=== PATIENT | female | born 1990 | race American Indian/Alaskan Native ===

== ENCOUNTER 2016-06-12 10:53 | Outpatient (CLI) | payer BC ==
[2016-06-12 12:32] LABS: Bacteria,Urine 2+ /HPF (Negative); Bilirubin,Urine NEG (Negative); Blood,Urine NEG (Negative); Ketones,Urine NEG (Negative); Leukocyte Esterase,Urine NEG (Negative); Mucus,Urine FEW /HPF; Nitrite,Urine NEG (Negative); Protein,Urine <15 mg/dL mg/dL (Negative); Urobilinogen,Urine < 2.0 mg/dL (<2.0)
[2016-06-12] MEDS ORDERED: LACTATED RINGERS 1,000 ML IV ONE (12:42)
[2016-06-12] MEDS ORDERED: LACTATED RINGERS 1,000 ML ONE (12:47)
[2016-06-12] MEDS ORDERED: BRETHINE SUB-Q ONE (15:00)
[2016-06-12 16:12] VITALS: BP 139/70
== END 2016-06-12 16:30 | disposition home or self-care (01) ==
LOC: TRG 10:53 → LD 10:56 → TRG 16:30
PROVIDERS: ATTEND Obstetrics & Gynecology
DX: O47.03 False labor before 37 completed weeks of gestation, third trimester (principal); Z3A.29 29 weeks gestation of pregnancy
CPT/HCPCS: 36415; 59025; 81001; 82731; 96360; 96372; J3105; J7120

== ENCOUNTER 2016-07-11 13:19 | Inpatient (IN) | payer BC, MEDICAID ==
[2016-07-11] MEDS ORDERED: LACTATED RINGERS 500 ML IV ONE (14:00)
[2016-07-11 14:03] LABS: Bacteria,Urine 1+ /HPF (Negative); Bilirubin,Urine NEG (Negative); Blood,Urine NEG (Negative); Ketones,Urine NEG (Negative); Leukocyte Esterase,Urine TR (Negative); Mucus,Urine 3+ /HPF; Nitrite,Urine NEG (Negative); Uric Acid Crystals,Urine 1+; Urobilinogen,Urine < 2.0 mg/dL (<2.0)
[2016-07-11] MEDS ORDERED: BRETHINE SUB-Q ONE (14:26)
[2016-07-11 14:31] LABS: Urine Drugs of Abuse Note Disclamer
[2016-07-11 15:00] LABS: Basophils % (Auto) 0.2 % (0.0-1.8); Eosinophils % (Auto) 0.6 % (0.0-4.3); Hematocrit 34.7 % (30.3-42.9); Hemoglobin 11.7 gm/dl (10.1-14.3); Mean Corpuscular HGB Conc 34 % (30-34); Mean Corpuscular Hemoglobin 29 pg (28-32); Mean Corpuscular Volume 87 fl (79-97); Platelet Count 300 K/mm3 (140-440); Red Blood Count 3.99 M/mm3 (3.65-5.03); Red Cell Distribution Width 13.5 % (13.2-15.2)
[2016-07-11] MEDS: CELESTONE SOLUSPAN IM SCH (15:30)
[2016-07-11] MEDS: LACTATED RINGERS 1,000 ML IV SCH ×2 (16:05→18:55)
[2016-07-11] MEDS ORDERED: SENOKOT S PO PRN (18:16)
[2016-07-11] MEDS ORDERED: MILK OF MAGNESIA PO PRN (18:16)
[2016-07-11] MEDS ORDERED: TYLENOL PO PRN (18:16)
[2016-07-11] MEDS ORDERED: SUDAFED PO PRN (18:16)
[2016-07-11] MEDS ORDERED: TUCKS PAD TP PRN (18:16)
[2016-07-11] MEDS ORDERED: ROBITUSSIN DM PO PRN (18:16)
[2016-07-11] MEDS ORDERED: DEEP SEA NS PRN (18:16)
[2016-07-11] MEDS ORDERED: ALUM-MAG HYDROX-SIMETH 200-200-20MG/5ML PO PRN (18:16)
[2016-07-11] MEDS ORDERED: AMBIEN PO PRN (18:16)
[2016-07-11] MEDS ORDERED: BENADRYL PO PRN (18:16)
[2016-07-11] MEDS ORDERED: COLACE PO PRN (18:16)
--- NOTE | 2016-07-11 18:28 | History and Physical Report ---
History of Present Illness Date of examination: 07/11/16 Date of admission: 07/11/16 13:27 Chief complaint: contractions History of present illness: This is a 26 yo G4 P 3 at 33 weeks came into labor and delivery complaining of contractions today.She states that baby is moving well. Denies any vb no leaking and no other sx. 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 denies: smoking, alcohol abuse - Obstetrical History Expected Date of Delivery: 08/28/16 Actual Gestation: 33 Week(s) 1 Day(s) : 4 Para: 3 Hx # Term Pregnancies: 3 Number of Pregnancies: 0 Spontaneous Abortions: 0 Induced : 0 Number of Living Children: 3 Medications and Allergies Allergies Allergy/AdvReac Type Severity Reaction Status Date / Time No Known Allergies Allergy Verified 06/12/16 11:29 Home Medications Medication Instructions Recorded Confirmed Last Taken Type No Known Home Medications [No 06/12/16 07/11/16 Unknown History Reported Home Medications] Active Meds: Active Medications Betamethasone Acet/Betameth SodPhos (Celestone Soluspan) 12 mg IM Q24H GWENDOLYN Stop: 07/12/16 15:01 Lactated Ringer's (Lactated Ringers) 1,000 mls @ 125 mls/hr IV DIRECT GEWNDOLYN Last Admin: 07/11/16 16:05 Dose: 125 mls/hr Magnesium Sulfate (Magnesium Sulfate 40gm/1000ml) 40 gm in 1,000 mls @ 25 mls/ hr IV DIRECT GWENDOLYN PRN Reason: 1 GM/HR Magnesium Sulfate (Magnesium Sulfate 4gm/100ml) 4 gm in 100 mls @ 300 mls/hr IV ONCE ONE Stop: 07/11/16 18:29 Review of Systems All systems: negative Genitourinary: contractions - Vital Signs Vital signs: Vital Signs Pulse Pulse Ox 93 H 99 07/11/16 13:35 07/11/16 13:35 Temp Pulse Resp BP Pulse Ox 97.2 F L 83 18 128/76 97 07/11/16 15:41 07/11/16 18:20 07/11/16 15:41 07/11/16 18:03 07/11/16 18:20 - Physical Exam Breasts: Positive: deferred Cardiovascular: Regular rate, Normal S1, Normal S2 Lungs: Positive: Clear to auscultation, Normal air movement Abdomen: Positive: normal appearance, soft, normal bowel sounds. Negative: distention, tenderness Genitourinary (Female): Positive: normal external genitalia, normal perenium Vulva: both: normal Vagina: Positive: normal moisture Uterus: Positive: normal size, normal contour Anus/Rectum: Positive: normal perianal skin Extremities: Positive: normal Deep Tendon Reflex Grade: Normal +2 - Obstetrical FHR: category 1 Uterine Contraction Monitor Mode: External Cervical Dilatation: 0.5 Cervical Effacement Percentage: 40 station: -4 Uterine Contraction Frequency (min): q3-5 Results Result Diagrams: 07/11/16 14:30 Abnormal lab results 07/11/16 Range/Units 14:30 WBC 12.0 H (4.5-11.0) K/mm3 Seg Neutrophils % 76.3 H (40.0-70.0) % Seg Neutrophils # 9.1 H (1.8-7.7) K/mm3 All other labs normal. Ultrasound: pending, report reviewed Assessment and Plan A/P IUP 33 weeks, labor 1. admitted to labor and delivery ( cervix changed from closed to FT) 2. IVF initiated 3. s/p 1 dose of terbutaline ( unsuccessful in mgt of ctx) 4. will start mag for neuroprotective and PTL 5. BPP 10/02 6. [facility] consult for further recommnedations 7. if any or maternal conditions will proceed with repeat c/s 8. signed tubal papers on chart 9. s/p one dose of celastone await second dose tomorrow 10. close monitor of status 11. send for cultures and GBS
[2016-07-11] MEDS ORDERED: MYLICON PO PRN (18:29)
[2016-07-11] MEDS ORDERED: MAGNESIUM SULFATE 4GM/100ML 4 GM/100 ML BAG IV ONE (19:00)
[2016-07-11] MEDS: MAGNESIUM SULFATE 40GM/1000ML 40 GM/1,000 ML BAG IV SCH (19:35)
[2016-07-11] MEDS ORDERED: STADOL IV PRN (21:05)
[2016-07-11] MEDS ORDERED: SUBLIMAZE IV PRN (21:08)
[2016-07-11] MEDS: ZOFRAN IV PRN (23:00)
[2016-07-11] MEDS ORDERED: PHENERGAN PR PRN (23:04)
[2016-07-11] MEDS ORDERED: PHENERGAN PO PRN (23:04)
--- NOTE | 2016-07-12 07:26 | Admit Criteria Form ---
Admission Criteria Documentation: LABOR, THREATENED Clinical Indications for Admission to Inpatient Care (Place 'X' for any and all applicable criteria): Admission is indicated for ANY ONE of the following 1,2,3: [ ]I. Chorioamnionitis [ ]II. Significant vaginal bleeding or any vaginal bleeding with known placental previa or vasa previa 5,8 [ ]III. Serious maternal, infection or comorbidity (eg, pyelonephritis, pneumonia) as cause [ ]IV. Delivery [ ]V. distress or demise [ ]. labor and positive fibronectin(fFN) assay (9) [ ]VII. Condition requiring premature delivery (eg, premature rupture of membranes) 4,5 [X ]VIII. Inpatient admission required rather than observation care (Also use Labor, Threatened: Observation Care Criteria as appropriate) because of ANY ONE of the following: [X]a) Continued monitoring that requires inpatient care [ ]b) Tocolytic therapy needed that requires inpatient care [ ]c) Complications of tocolytic treatment (eg, pulmonary edema, hypotension) that are severe or persistent (9) Extended stay beyond goal length of stay may be needed for (1)(2) [ ]a) Significant infection (eg, chorioamnionitis)(29) [ ]b) Continued uterine contractions [ ]c) demise [ ]d) Continued vaginal bleeding or placental abnormality [ ]e) Complications of tocolytic treatment (eg, pulmonary edema, hypotension)( 15) [ ]f) Multiple gestation(33) [ ]g) Other condition (eg, severe maternal disease, premature delivery) requiring continued inpatient care The original [email or web address] content created by [employer] has been revised. The portions of the content which have been revised are identified through the use of italic text or in bold, and [facility] has neither reviewed nor approved the modified material. All other unmodified content is copyright [facility] [facility]. Please see references footnoted in the original [facility] [employer] edition 2016 Admission Criteria Met: Yes
[2016-07-12] MEDS: LACTATED RINGERS 1,000 ML IV SCH ×2 (07:31→21:17)
--- NOTE | 2016-07-12 07:31 | Ultrasound Report ---
BIOPHYSICAL PROFILE: INDICATION: STACI. COMPARISON: None similar. TECHNIQUE: Transabdominal ultrasound with Doppler interrogation. 2 - breathing movements 2 - movements 2 - posture and tone 2 - Qualitative amniotic fluid volume 8 - TOTAL SCORE OF POSSIBLE 8 Heart Rate (bpm) 153
--- NOTE | 2016-07-12 07:37 | Ultrasound Report ---
OB ULTRASOUND GREATER THAN 14 WEEKS INDICATION: STACI, labor. COMPARISON: None similar. TECHNIQUE: Transabdominal grayscale ultrasound with Doppler interrogation. Gestation: [place] Position: Cephalic Amniotic Fluid: WNL (7-24 cm) STACI = 13.7 cm Placenta: Posterior fundal Placental Grade: I Heart Rate: 153 BPM It is too early for a anatomical survey BPD: 8.3 cm = 33 w 2 d HC: 30.4 cm = 33 w 5 d AC: 30.4 cm = 34 w 3 d FL: 6.7 cm = 34 w 4 d HC/AC Ratio: 1 Cephalic Index: 74 Estimated Weight: 2391 grams Clinical age = 33 w 1 d EDC: 08/28/2016 US Gest. Age = 34 w 0 d EDC: 08/22/2016 CONCLUSION: Single, viable intrauterine gestation with ultrasound estimated age of 34 weeks and zero days and EDC of 08/22/2016, currently in cephalic lie with details, as above. Thank you for the opportunity to participate in this patient's care.
--- NOTE | 2016-07-12 08:34 | Progress Note ---
Assessment and Plan A: IUP at 33w2d s/p 1 dose of betamethasone labor on magnesium sulfate tocolysis Previous x 3 Obesity Undesired Fertility Genital Herpes P: Continue current management. Second dose of betamethasone today. MFM consult today. Closely monitor maternal and status. Subjective - Subjective Date of service: 07/12/16 Principal diagnosis: IUP at 33w2d, labor, Previoud x 3 Interval history: Pt reports intense contractions overnight that have since become less frequent. She denies leakage of fluid or vaginal bleeding. Patient reports: movement normal, contractions (irregular ), no new complaints, no loss of fluid, no vaginal bleeding Objective - Vital Signs Vital Signs: Vital Signs - 12hr 07/11/16 07/11/16 07/11/16 20:48 21:16 21:48 Temperature Pulse Rate 80 84 Respiratory 20 Rate Blood Pressure 110/55 125/57 Blood Pressure [Right Arm] O2 Sat by Pulse Oximetry 07/11/16 07/11/16 07/11/16 22:49 22:51 23:48 Temperature 97.7 F Pulse Rate 76 77 Respiratory 18 Rate Blood Pressure 110/57 104/67 Blood Pressure [Right Arm] O2 Sat by Pulse Oximetry 07/12/16 07/12/16 07/12/16 00:00 00:48 01:59 Temperature Pulse Rate 70 75 Respiratory 18 Rate Blood Pressure 117/60 106/69 Blood Pressure [Right Arm] O2 Sat by Pulse Oximetry 07/12/16 07/12/16 07/12/16 02:00 03:30 03:31 Temperature 97.7 F Pulse Rate 71 Respiratory 16 18 Rate Blood Pressure 94/51 Blood Pressure [Right Arm] O2 Sat by Pulse 97 Oximetry 07/12/16 07/12/16 07/12/16 03:36 03:41 03:46 Temperature Pulse Rate 82 67 68 Respiratory Rate Blood Pressure Blood Pressure [Right Arm] O2 Sat by Pulse 98 97 97 Oximetry 07/12/16 07/12/16 07/12/16 03:51 03:56 04:01 Temperature Pulse Rate 66 70 70 Respiratory Rate Blood Pressure Blood Pressure [Right Arm] O2 Sat by Pulse 97 97 98 Oximetry 07/12/16 07/12/16 07/12/16 04:06 04:11 04:16 Temperature Pulse Rate 75 72 71 Respiratory Rate Blood Pressure Blood Pressure [Right Arm] O2 Sat by Pulse 97 97 97 Oximetry 07/12/16 07/12/16 07/12/16 04:21 04:26 04:31 Temperature Pulse Rate 75 73 74 Respiratory Rate Blood Pressure Blood Pressure [Right Arm] O2 Sat by Pulse 97 97 97 Oximetry 07/12/16 07/12/16 07/12/16 04:36 04:41 04:46 Temperature Pulse Rate 74 72 96 H Respiratory Rate Blood Pressure Blood Pressure [Right Arm] O2 Sat by Pulse 97 97 96 Oximetry 07/12/16 07/12/16 07/12/16 04:51 04:54 04:56 Temperature Pulse Rate 69 73 78 Respiratory Rate Blood Pressure Blood Pressure [Right Arm] O2 Sat by Pulse 95 94 95 Oximetry 07/12/16 07/12/16 07/12/16 05:00 05:01 05:06 Temperature Pulse Rate 81 75 71 Respiratory Rate Blood Pressure Blood Pressure [Right Arm] O2 Sat by Pulse 94 94 94 Oximetry 07/12/16 07/12/16 07/12/16 05:07 05:11 05:12 Temperature Pulse Rate 76 72 73 Respiratory Rate Blood Pressure Blood Pressure [Right Arm] O2 Sat by Pulse 93 93 93 Oximetry 07/12/16 07/12/16 07/12/16 05:16 05:18 05:21 Temperature Pulse Rate 73 72 76 Respiratory Rate Blood Pressure Blood Pressure [Right Arm] O2 Sat by Pulse 95 94 94 Oximetry 07/12/16 07/12/16 07/12/16 05:23 05:26 05:28 Temperature Pulse Rate 69 92 H 68 Respiratory Rate Blood Pressure Blood Pressure [Right Arm] O2 Sat by Pulse 94 97 94 Oximetry 07/12/16 07/12/16 07/12/16 05:30 06:29 06:31 Temperature Pulse Rate 68 65 Respiratory 22 20 Rate Blood Pressure 119/61 128/71 Blood Pressure [Right Arm] O2 Sat by Pulse Oximetry 07/12/16 07/12/16 07/12/16 07:30 07:55 07:56 Temperature 97.5 F L Pulse Rate 74 77 Respiratory 14 Rate Blood Pressure 124/64 Blood Pressure 124/64 [Right Arm] O2 Sat by Pulse 98 98 Oximetry 07/12/16 07/12/16 07/12/16 08:01 08:06 08:11 Temperature Pulse Rate 77 71 79 Respiratory Rate Blood Pressure Blood Pressure [Right Arm] O2 Sat by Pulse 98 98 99 Oximetry 07/12/16 08:16 Temperature Pulse Rate 76 Respiratory Rate Blood Pressure Blood Pressure [Right Arm] O2 Sat by Pulse 97 Oximetry - Exam Breasts: deferred Cardiovascular: Regular rate Lungs: Clear to auscultation Abdomen: Present: soft (obese, gravid ) Uterus: Present: normal (gravid ) FHR: auscultation normal Uterine Contraction Monitor Mode: External Uterine Contraction Pattern: Irregular Uterine Tone Measurement Phase: Resting Uterine Contraction Intensity: Mild Extremities: normal (SCDs in place ) - Labs Labs: Abnormal Labs 07/11/16 07/11/16 07/12/16 14:30 23:17 05:30 WBC 12.0 H Seg Neutrophils % 76.3 H Seg Neutrophils # 9.1 H Magnesium 3.10 H 3.80 H Laboratory Results - last 24 hr 07/11/16 07/11/16 07/11/16 13:45 13:45 14:30 WBC 12.0 H RBC 3.99 Hgb 11.7 Hct 34.7 MCV 87 MCH 29 MCHC 34 RDW 13.5 Plt Count 300 Lymph % (Auto) 17.5 Greene % (Auto) 5.4 Eos % (Auto) 0.6 Baso % (Auto) 0.2 Lymph # 2.1 Greene # 0.6 Eos # 0.1 Baso # 0.0 Seg Neutrophils % 76.3 H Seg Neutrophils # 9.1 H Magnesium Urine Color Yellow Urine Turbidity Clear Urine pH 6.0 Ur Specific Larose 1.019 Urine Protein 30 mg/dl Urine Glucose (UA) Neg Urine Ketones Neg Urine Blood Neg Urine Nitrite Neg Urine Bilirubin Neg Urine Urobilinogen < 2.0 Ur Leukocyte Esterase Tr Urine WBC (Auto) 6.0 Urine RBC (Auto) 2.0 U Epithel Cells (Auto) 7.0 Urine Bacteria (Auto) 1+ Uric Acid Crystals 1+ Urine Mucus 3+ Urine Opiates Screen Presumptive negative Urine Methadone Screen Presumptive negative Ur Barbiturates Screen Presumptive negative Ur Phencyclidine Scrn Presumptive negative Ur Amphetamines Screen Presumptive negative U Benzodiazepines Scrn Presumptive negative Urine Cocaine Screen Presumptive negative U Marijuana (THC) Screen Presumptive positive Drugs of Abuse Note Disclamer Blood Type Antibody Screen DELROY Antibody Screen 07/11/16 07/11/16 07/12/16 14:30 23:17 05:30 WBC RBC Hgb Hct MCV MCH MCHC RDW Plt Count Lymph % (Auto) Greene % (Auto) Eos % (Auto) Baso % (Auto) Lymph # Greene # Eos # Baso # Seg Neutrophils % Seg Neutrophils # Magnesium 3.10 H 3.80 H Urine Color Urine Turbidity Urine pH Ur Specific Larose Urine Protein Urine Glucose (UA) Urine Ketones Urine Blood Urine Nitrite Urine Bilirubin Urine Urobilinogen Ur Leukocyte Esterase Urine WBC (Auto) Urine RBC (Auto) U Epithel Cells (Auto) Urine Bacteria (Auto) Uric Acid Crystals Urine Mucus Urine Opiates Screen Urine Methadone Screen Ur Barbiturates Screen Ur Phencyclidine Scrn Ur Amphetamines Screen U Benzodiazepines Scrn Urine Cocaine Screen U Marijuana (THC) Screen Drugs of Abuse Note Blood Type O POSITIVE Antibody Screen TNR DELROY Antibody Screen Negative
[2016-07-12] MEDS ORDERED: PRENATAL VITAMIN PO SCH (10:00)
--- NOTE | 2016-07-12 13:20 | Consultation ---
History of Present Illness Reason for consult: contractions (Patient is 25 y.o. G [id number] at 33.2 weeks with GUIDO of 08/28/16 Patient presented to [facility] on 07/11/16 with complaints of contractions . Patient followed by [facility] due to Morbid obesity with last appt 05/18/16. Patient is S/P BMZ times 1 dose and has MgSO4 2 gm/hr in progress . Patient denies VB, ABD pain , regular contractions. 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 Family/Genetic History: other (thyroid) - Obstetrical History : 4 Medications and Allergies Allergies Allergy/AdvReac Type Severity Reaction Status Date / Time No Known Allergies Allergy Verified 06/12/16 11:29 Home Medications Medication Instructions Recorded Confirmed Last Taken Type No Known Home Medications [No 06/12/16 07/11/16 Unknown History Reported Home Medications] Active Meds: Active Medications Acetaminophen (Tylenol) 650 mg PO Q4H PRN PRN Reason: Pain MILD(1-3)/Fever >100.5/CISSE Al Hydrox/Mg Hydrox/Simethicone (Alum-Mag Hydrox-Simeth [phone]/5ml) 30 ml PO Q6H PRN PRN Reason: Indigestion Betamethasone Acet/Betameth SodPhos (Celestone Soluspan) 12 mg IM Q24H GWENDOLYN Stop: 07/12/16 15:01 Last Admin: 07/11/16 15:30 Dose: 12 mg Butorphanol Tartrate (Stadol) 2 mg IV Q2H PRN PRN Reason: Labor Pain Last Admin: 07/11/16 21:13 Dose: 2 mg Diphenhydramine HCl (Benadryl) 25 mg PO Q6H PRN PRN Reason: Itching Docusate Sodium (Colace) 100 mg PO Q12H PRN PRN Reason: Constipation Fentanyl (Sublimaze) 100 mcg IV Q2H PRN PRN Reason: Labor Pain Guaifenesin (Robitussin Dm) 10 ml PO Q6H PRN PRN Reason: Cough Lactated Ringer's (Lactated Ringers) 1,000 mls @ 125 mls/hr IV DIRECT GWENDOLYN Last Admin: 07/12/16 07:31 Dose: 125 mls/hr Magnesium Sulfate (Magnesium Sulfate 40gm/1000ml) 40 gm in 1,000 mls @ 50 mls/ hr IV DIRECT GWENDOLYN PRN Reason: 2 GM/HR Last Infusion: 07/11/16 21:52 Dose: 2 gm/hr, 50 mls/hr Magnesium Hydroxide (Milk Of Magnesia) 30 ml PO QHS PRN PRN Reason: Laxative Effect Multivitamins/Iron/Calcium ( Vitamin) 1 each PO QDAY GWENDOLYN Last Admin: 07/12/16 10:05 Dose: 1 each Ondansetron HCl (Zofran) 4 mg IV Q6H PRN PRN Reason: Nausea And Vomiting Last Admin: 07/11/16 23:00 Dose: 4 mg Promethazine HCl (Phenergan) 25 mg NC Q6H PRN PRN Reason: Nausea And Vomiting Promethazine HCl (Phenergan) 25 mg PO Q6H PRN PRN Reason: Nausea And Vomiting Pseudoephedrine HCl (Sudafed) 30 mg PO Q4H PRN PRN Reason: Nasal Congestion Senna/Docusate Sodium (Senokot S) 2 tab PO Q12H PRN PRN Reason: Laxative Effect Simethicone (Mylicon) 80 mg PO Q6H PRN PRN Reason: Gas pain Sodium Chloride (Deep Sea) 2 spray NS Q4H PRN PRN Reason: Congestion Witch Opal/Glycerin (Tucks Pad) 1 each TP PRN PRN PRN Reason: Hemorrhoids Zolpidem Tartrate (Ambien) 10 mg PO ONCE PRN PRN Reason: Sleep Review of Systems Constitutional: no fever, no chills Eyes: deferred Ears, nose, mouth and throat: no headache Cardiovascular: no chest pain, no rapid/irregular heart beat, no syncope Respiratory: no cough, no shortness of breath Breasts: deferred Gastrointestinal: no nausea, no vomiting, no diarrhea Genitourinary: no vaginal bleeding, no vaginal discharge, no leakage of fluid, no contractions Rectal Exam: deferred Musculoskeletal: no low back pain Integumentary: no rash Neurological: no seizures, no headaches Psychiatric: no depression Endocrine: no excessive thirst Hematologic/Lymphatic: no easy bruising, no easy bleeding Allergic/Immunologic: no wheezing - Vital Signs Vital signs: Vital Signs Pulse Pulse Ox 93 H 99 07/11/16 13:35 07/11/16 13:35 Temp Pulse Resp BP Pulse Ox 96.2 F L 77 16 130/62 98 07/12/16 10:38 07/12/16 10:56 07/12/16 10:38 07/12/16 10:35 07/12/16 10:56 - Physical Exam Breasts: Positive: deferred Cardiovascular: Regular rate Lungs: Positive: Normal air movement Abdomen: Negative: tenderness, guarding Genitourinary (Female): Positive: other (+ urinary output via tyler ) Uterus: Positive: other (gravid ). Negative: tender Deep Tendon Reflex Grade: Normal +2 - Obstetrical FHR: category 1 Uterine Contraction Monitor Mode: External (no contractions traced during consultation) Uterine Contraction Pattern: Absent Results Result Diagrams: 07/11/16 14:30 Abnormal lab results 07/11/16 07/11/16 07/12/16 Range/Units 14:30 23:17 05:30 WBC 12.0 H (4.5-11.0) K/mm3 Seg Neutrophils % 76.3 H (40.0-70.0) % Seg Neutrophils # 9.1 H (1.8-7.7) K/mm3 Magnesium 3.10 H 3.80 H (1.7-2.3) mg/dL 07/12/16 Range/Units 10:50 WBC (4.5-11.0) K/mm3 Seg Neutrophils % (40.0-70.0) % Seg Neutrophils # (1.8-7.7) K/mm3 Magnesium 4.10 H (1.7-2.3) mg/dL All other labs normal. Ultrasound: report reviewed ([facility] U/S 34. 0 weeks STACI -13.7 cm VTX; EFW 2391 gm + FHT of 153 BPP 10/02 ) Assessment and Plan : A: 1. IUP at 33w2d 2. labor resolved while on magnesium sulfate tocolysis 3. Previous x 3 4. Morbid obesity 5. 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 S/P 1 dose of betamethasone 8. Genital Herpes 9. CAT I tracing 10 Reassuring Doppler of 10/02 P: 1. Continue current management. 2. Second dose of betamethasone today. 3. Continue MGSO4 per PTL protocol 4. GC/CT culture 5. Possible discharge home tomorrow 07/13/16 with no contractions under no tocolysis , no change from admission SVE, and No maternal or compromise
[2016-07-12] MEDS: CELESTONE SOLUSPAN IM SCH (15:30)
[2016-07-12] MEDS: MAGNESIUM SULFATE 40GM/1000ML 40 GM/1,000 ML BAG IV SCH (16:58)
[2016-07-13] MEDS: ZOFRAN IV PRN (00:01)
--- NOTE | 2016-07-13 09:51 | Progress Note ---
Assessment and Plan A: IUP at 33w3d s/p 2 dose of betamethasone labor on magnesium sulfate tocolysis Previous x 3 Obesity Undesired Fertility Genital Herpes P: Discontinue magnesium sulfate. Observe for two hours after cessation. Discharge home this afternoon with Procardia tocolysis if needed. Subjective - Subjective Date of service: 07/13/16 Principal diagnosis: IUP at 33w3d, labor, Previoud x 3 Interval history: Pt asking to go home. She denies contractions this morning. Patient reports: movement normal, contractions (irregular ), no new complaints, no loss of fluid, no vaginal bleeding Objective - Vital Signs Vital Signs: Vital Signs - 12hr 07/12/16 07/12/16 07/13/16 23:52 23:57 00:02 Temperature 98.5 F Pulse Rate 72 74 77 Pulse Rate [ 72 Right From Monitor] Respiratory 20 Rate Blood Pressure 134/79 Blood Pressure 134/79 [Right Arm] O2 Sat by Pulse 95 97 98 Oximetry 07/13/16 07/13/16 07/13/16 00:43 02:13 03:43 Temperature 98.2 F Pulse Rate 67 67 69 Pulse Rate [ 69 Right From Monitor] Respiratory 18 Rate Blood Pressure 116/59 107/58 125/68 Blood Pressure 125/68 [Right Arm] O2 Sat by Pulse Oximetry 07/13/16 07/13/16 07/13/16 05:22 05:27 05:32 Temperature Pulse Rate 93 H 67 67 Pulse Rate [ Right From Monitor] Respiratory Rate Blood Pressure Blood Pressure [Right Arm] O2 Sat by Pulse 98 97 97 Oximetry 07/13/16 07/13/16 07/13/16 05:37 05:42 05:47 Temperature Pulse Rate 70 66 69 Pulse Rate [ Right From Monitor] Respiratory Rate Blood Pressure Blood Pressure [Right Arm] O2 Sat by Pulse 97 97 97 Oximetry 07/13/16 07/13/16 07/13/16 05:52 05:57 06:02 Temperature 98.7 F Pulse Rate 68 85 65 Pulse Rate [ Right From Monitor] Respiratory 18 Rate Blood Pressure 120/74 Blood Pressure [Right Arm] O2 Sat by Pulse 98 97 97 Oximetry 07/13/16 07/13/16 07/13/16 06:43 08:15 08:45 Temperature Pulse Rate 85 71 69 Pulse Rate [ Right From Monitor] Respiratory Rate Blood Pressure 126/80 138/63 128/72 Blood Pressure [Right Arm] O2 Sat by Pulse Oximetry 07/13/16 07/13/16 08:47 09:43 Temperature Pulse Rate 80 83 Pulse Rate [ Right From Monitor] Respiratory Rate Blood Pressure 128/67 121/76 Blood Pressure [Right Arm] O2 Sat by Pulse Oximetry - Exam Breasts: deferred Cardiovascular: Regular rate Abdomen: Present: soft (obese, gravid ) Uterus: Present: normal (gravid ) FHR: category 1 Uterine Contraction Monitor Mode: External Uterine Contraction Pattern: Absent (during assessment) Uterine Tone Measurement Phase: Resting Uterine Contraction Intensity: Mild Extremities: normal - Labs Labs: Abnormal Labs 07/11/16 07/11/16 07/12/16 14:30 23:17 05:30 WBC 12.0 H Seg Neutrophils % 76.3 H Seg Neutrophils # 9.1 H Magnesium 3.10 H 3.80 H 07/12/16 07/12/16 07/12/16 10:50 16:48 23:39 WBC Seg Neutrophils % Seg Neutrophils # Magnesium 4.10 H 3.70 H 3.70 H 07/13/16 04:40 WBC Seg Neutrophils % Seg Neutrophils # Magnesium 4.00 H Laboratory Results - last 24 hr 07/12/16 07/12/16 07/12/16 10:50 16:48 23:39 Magnesium 4.10 H 3.70 H 3.70 H 07/13/16 04:40 Magnesium 4.00 H
--- NOTE | 2016-07-13 09:52 | Discharge Summary ---
Providers - Providers Date of Admission: 07/12/16 08:49 Date of discharge: 07/13/16 Attending physician: RONY RICKETTS MD 07/11/16 18:16 Consult to Physician [CONS] Routine Consulting Provider: RONY RICKETTS Reason For Exam: [address] consult to:: niccu Notified:: yes Phone number called:: [phone] Was contact made?: Yes If yes, spoke with:: Amita Time called:: 20:00 07/11/16 21:51 Consult to Physician [CONS] Routine Consulting Provider: JOSE ANGEL BROWNE Reason For Exam: labor @33weeks Place consult to:: MAURO Notified:: yes Phone number called:: [phone] Was contact made?: Yes If yes, spoke with:: Misti Time called:: 05:54 Primary care physician: RONY RICKETTS MD Hospitalization Reason for admission: labor, other Hospital course: Pt was admitted for labor. While hospitalized she received two doses of betamethasone, an obstetric ultrasound, magnesium sulfate tocolysis and an [facility] consult. She met discharge criteria on HD#2. She has a follow up appt with [facility] on 07/16/16 and will see a provider at [facility] at the end of next week. Condition at discharge: Stable Disposition: DISCHARGED TO HOME OR SELFCARE - Discharge Diagnoses (1) labor in third trimester Status: Acute Qualifiers: labor delivery status: without delivery Fetus number: F Qualified Code(s): O60.03 - labor without delivery, third trimester (2) Obesity Status: Acute Qualifiers: Obesity type: O Obesity severity: non-morbid (3) Previous section Status: Acute Plan - Discharge Medications Prescriptions: NIFEdipine 10 mg PO TID #90 cap - Provider Discharge Summary Activity: routine, other (bedrest) Diet: routine Instructions: routine Additional instructions: [] Smoking cessation referral if applicable(refer to patient education folder for contact #) [] Refer to [facility]'s [facility] Booklet Call your doctor immediately for: * Fever > 100.5 * Heavy vaginal bleeding ( >1 pad per hour) * Severe persistent headache * Shortness of breath * Reddened, hot, painful area to leg or breast * Drainage or odor from incision. * Keep incision clean and dry at all times and follow doctor's instructions regarding bathing/showering - Follow up plan Follow up: RONY RICKETTS MD [Primary Care Provider] - 07/19/16
[2016-07-13 10:00] VITALS: BP 127/76
== END 2016-07-13 13:30 | disposition home or self-care (01) | DRG 778 ==
LOC: TRG 13:19 → LD 13:27 → OBSVTOIN 07-12 08:49
PROVIDERS: ADMIT Obstetrics & Gynecology; ATTEND Obstetrics & Gynecology
DX: O60.03 Preterm labor without delivery, third trimester (principal); O34.211 Maternal care for low transverse scar from previous cesarean delivery; N85.8 Other specified noninflammatory disorders of uterus; O26.93 Pregnancy related conditions, unspecified, third trimester; O99.213 Obesity complicating pregnancy, third trimester; E66.01 Morbid (severe) obesity due to excess calories; O99.013 Anemia complicating pregnancy, third trimester; A60.00 Herpesviral infection of urogenital system, unspecified; Z3A.33 33 weeks gestation of pregnancy; Z68.36 Body mass index [BMI] 36.0-36.9, adult
CPT/HCPCS: 36415; 76816; 76819; 80307; 81001; 83735; 85025; 86850; 86900; 86901; 87086; 87116; 87591; G0378; J0595; J0702; J2405; J3475; J7120

== ENCOUNTER 2016-07-27 09:35 | Inpatient (IN) | payer BC, MEDICAID ==
[2016-07-27] MEDS ORDERED: LACTATED RINGERS 500 ML IV ONE (10:14)
[2016-07-27] MEDS ORDERED: MORPHINE IV ONE (10:24)
[2016-07-27] MEDS: LACTATED RINGERS 1,000 ML IV SCH ×2 (11:00→19:30)
[2016-07-27] MEDS ORDERED: MORPHINE ONE (11:01)
[2016-07-27] MEDS: PHENERGAN PO PRN (11:05)
[2016-07-27] MEDS ORDERED: TYLENOL ONE (11:10)
[2016-07-27 11:14] LABS: Bacteria,Urine 4+ /HPF (Negative); Bilirubin,Urine NEG (Negative); Blood,Urine SM (Negative); Ketones,Urine TR mg/dL (Negative); Leukocyte Esterase,Urine LG (Negative); Mucus,Urine 1+ /HPF; Nitrite,Urine NEG (Negative); Urobilinogen,Urine < 2.0 mg/dL (<2.0)
[2016-07-27 11:26] LABS: Alanine Aminotransferase 17 units/L (7-56); Lactate Dehydrogenase 152 units/L (91-180); Uric Acid 4.1 mg/dL (3.5-7.6)
[2016-07-27 11:27] LABS: Hemoglobin 12.2 gm/dl (10.1-14.3); Mean Corpuscular HGB Conc 34 % (30-34); Mean Corpuscular Hemoglobin 30 pg (28-32); Mean Corpuscular Volume 87 fl (79-97); Platelet Count 299 K/mm3 (140-440); Red Blood Count 4.12 M/mm3 (3.65-5.03); Red Cell Distribution Width 13.9 % (13.2-15.2); White Blood Count 17.7 K/mm3 (4.5-11.0)
[2016-07-27] MEDS ORDERED: TYLENOL PO ONE (12:12)
[2016-07-27] MEDS ORDERED: AMBIEN PO PRN (16:16)
[2016-07-27] MEDS ORDERED: COLACE PO PRN (16:16)
--- NOTE | 2016-07-27 16:16 | History and Physical Report ---
History of Present Illness Date of examination: 07/27/16 Date of admission: 07/27/16 11:18 Chief complaint: Contractions History of present illness: 26y/o @ 35+3 weeks presents to triage with pelvic pain and contractions. She was found to be febrile and tachycardic. She denies any recent URI symptoms, no leakage of fluid, or vaginal discharge. She has been tolerating her diet. Patient was also found to have irregular contractions. Cervix was closed in triage. 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 Social history: single - Obstetrical History Expected Date of Delivery: 08/28/16 Actual Gestation: 35 Week(s) 3 Day(s) : 4 Para: 3 Hx # Term Pregnancies: 3 Number of Pregnancies: 0 Spontaneous Abortions: 0 Induced : 0 Number of Living Children: 3 Medications and Allergies Allergies Allergy/AdvReac Type Severity Reaction Status Date / Time No Known Allergies Allergy Verified 06/12/16 11:29 Home Medications Medication Instructions Recorded Confirmed Last Taken Type NIFEdipine 10 mg PO TID #90 cap 07/13/16 Unknown Rx Active Meds: Active Medications Lactated Ringer's (Lactated Ringers) 1,000 mls @ 125 mls/hr IV DIRECT GWENDOLYN Last Admin: 07/27/16 11:00 Dose: 125 mls/hr Promethazine HCl (Phenergan) 25 mg PO Q6H PRN PRN Reason: Nausea And Vomiting Last Admin: 07/27/16 11:05 Dose: 25 mg Review of Systems Genitourinary: pelvic pain - Vital Signs Vital signs: Vital Signs Pulse Pulse Ox 123 H 98 07/27/16 09:58 07/27/16 09:58 Temp Pulse Resp BP Pulse Ox 101.4 F H 106 H 18 141/86 99 07/27/16 12:14 07/27/16 15:14 07/27/16 12:14 07/27/16 15:14 07/27/16 14:14 - Physical Exam Breasts: Positive: deferred Abdomen: Positive: normal appearance, soft Results Result Diagrams: 07/27/16 10:35 07/27/16 10:35 Abnormal lab results 07/27/16 07/27/16 07/27/16 Range/Units 10:35 10:35 10:35 WBC 17.7 H (4.5-11.0) K/mm3 Creatinine 0.5 L (0.7-1.2) mg/dL Urine WBC (Auto) 48.0 H (0.0-6.0) /HPF All other labs normal. Assessment and Plan - Patient Problems (1) uterine contractions Current Visit: Yes Status: Acute Plan to address problem: admit patient for observation IV fluids and blood cultures tylenol prn monitoring (2) Febrile illness Current Visit: Yes Status: Acute
[2016-07-27] MEDS: PERCOCET 5/325 PO PRN (18:00)
[2016-07-28] MEDS: PERCOCET 5/325 PO PRN ×4 (00:37→23:31)
--- NOTE | 2016-07-28 07:13 | Progress Note ---
Assessment and Plan - Patient Problems (1) uterine contractions Current Visit: Yes Status: Acute (2) Febrile illness Current Visit: Yes Status: Acute (3) UTI (urinary tract infection) Current Visit: No Status: Acute Qualifiers: Urinary tract infection type: U Hematuria presence: H Indwelling urinary catheter type: I Encounter type: E Plan to address problem: initiate IV antibiotics blood cultures still pending will discharge home once afebrile 24hrs Subjective - Subjective Date of service: 07/28/16 Interval history: 26y/o @ 35+4 weeks with temp spike this am. UA results returned with evidence of UTI. Patient complains of mild side pain. She denies nausea or vomiting. Patient reports: no new complaints Objective - Vital Signs Vital Signs: Vital Signs - 12hr 07/27/16 07/27/16 07/27/16 19:26 19:30 23:14 Temperature 100.4 F H Pulse Rate 113 H 109 H Pulse Rate [ 113 H From Monitor] Respiratory 20 Rate Blood Pressure 111/56 Blood Pressure 111/56 [Right Arm] O2 Sat by Pulse 99 Oximetry 07/27/16 07/27/16 07/27/16 23:19 23:24 23:29 Temperature Pulse Rate 113 H 100 H 100 H Pulse Rate [ From Monitor] Respiratory Rate Blood Pressure Blood Pressure [Right Arm] O2 Sat by Pulse 99 100 100 Oximetry 07/27/16 07/27/16 07/27/16 23:30 23:34 23:39 Temperature 101.4 F H Pulse Rate 106 H 102 H Pulse Rate [ From Monitor] Respiratory Rate Blood Pressure Blood Pressure [Right Arm] O2 Sat by Pulse 100 100 Oximetry 07/27/16 07/27/16 07/27/16 23:44 23:49 23:54 Temperature Pulse Rate 103 H 100 H 101 H Pulse Rate [ From Monitor] Respiratory Rate Blood Pressure Blood Pressure [Right Arm] O2 Sat by Pulse 100 100 100 Oximetry 07/27/16 07/28/16 07/28/16 23:59 00:04 00:09 Temperature Pulse Rate 94 H 103 H 103 H Pulse Rate [ From Monitor] Respiratory Rate Blood Pressure Blood Pressure [Right Arm] O2 Sat by Pulse 100 100 100 Oximetry 07/28/16 07/28/16 07/28/16 00:14 00:19 00:39 Temperature 100.1 F H Pulse Rate 103 H 104 H 108 H Pulse Rate [ 108 H From Monitor] Respiratory 22 Rate Blood Pressure 122/71 Blood Pressure 122/71 [Right Arm] O2 Sat by Pulse 100 100 Oximetry 07/28/16 05:14 Temperature 99.8 F H Pulse Rate Pulse Rate [ From Monitor] Respiratory Rate Blood Pressure Blood Pressure [Right Arm] O2 Sat by Pulse Oximetry - Exam Abdomen: Present: normal appearance, soft - Labs Labs: Abnormal Labs 07/27/16 07/27/16 07/27/16 10:35 10:35 10:35 WBC 17.7 H Creatinine 0.5 L Urine WBC (Auto) 48.0 H Laboratory Results - last 24 hr 07/27/16 07/27/16 07/27/16 10:35 10:35 10:35 WBC 17.7 H RBC 4.12 Hgb 12.2 Hct 36.0 MCV 87 MCH 30 MCHC 34 RDW 13.9 Plt Count 299 Creatinine 0.5 L Estimated GFR > 60 Uric Acid 4.1 AST 14 ALT 17 Lactate Dehydrogenase 152 Urine Color Yellow Urine Turbidity Slightly-cloudy Urine pH 7.0 Ur Specific Bastian 1.011 Urine Protein 100 mg/dl Urine Glucose (UA) Neg Urine Ketones Tr Urine Blood Sm Urine Nitrite Neg Urine Bilirubin Neg Urine Urobilinogen < 2.0 Ur Leukocyte Esterase Lg Urine WBC (Auto) 48.0 H Urine RBC (Auto) 6.0 U Epithel Cells (Auto) 6.0 Urine Bacteria (Auto) 4+ Ur Transition Epith Cell 1 Urine Mucus 1+ Blood Type Antibody Screen DELROY Antibody Screen 07/27/16 10:35 WBC RBC Hgb Hct MCV MCH MCHC RDW Plt Count Creatinine Estimated GFR Uric Acid AST ALT Lactate Dehydrogenase Urine Color Urine Turbidity Urine pH Ur Specific Bastian Urine Protein Urine Glucose (UA) Urine Ketones Urine Blood Urine Nitrite Urine Bilirubin Urine Urobilinogen Ur Leukocyte Esterase Urine WBC (Auto) Urine RBC (Auto) U Epithel Cells (Auto) Urine Bacteria (Auto) Ur Transition Epith Cell Urine Mucus Blood Type O POSITIVE Antibody Screen TNR DELROY Antibody Screen Negative
[2016-07-28] MEDS: ceFAZolin 2 GM in NACL 0.9% 100 ML IV SCH ×3 (08:00→22:07)
[2016-07-28] MEDS: PRENATAL VITAMIN PO SCH (10:22)
[2016-07-28] MEDS: PHENERGAN PO PRN (14:23)
[2016-07-28] MEDS: LACTATED RINGERS 1,000 ML IV SCH ×2 (14:23)
[2016-07-28] MEDS: TYLENOL PO PRN (14:24)
[2016-07-28] MEDS: GARAMYCIN/NS 100 MG/100 ML 100 MG/100 ML BAG IV SCH (18:56)
[2016-07-29] MEDS: LACTATED RINGERS 1,000 ML IV SCH (02:45)
[2016-07-29] MEDS: GARAMYCIN/NS 100 MG/100 ML 100 MG/100 ML BAG IV SCH ×3 (02:47→19:45)
[2016-07-29] MEDS: ceFAZolin 2 GM in NACL 0.9% 100 ML IV SCH ×3 (05:59→23:30)
--- NOTE | 2016-07-29 09:55 | Ultrasound Report ---
BIOPHYSICAL PROFILE: 2 - breathing movements 2 - movements 2 - posture and tone 2 - Qualitative amniotic fluid volume 8 - TOTAL SCORE OF POSSIBLE 8 Heart Rate (bpm) 178
[2016-07-29] MEDS: TYLENOL PO PRN (11:58)
[2016-07-29] MEDS: PRENATAL VITAMIN PO SCH (12:00)
--- NOTE | 2016-07-29 14:46 | Progress Note ---
Assessment and Plan - Patient Problems (1) uterine contractions Current Visit: Yes Status: Acute (2) Febrile illness Current Visit: Yes Status: Acute Plan to address problem: continue IV antibiotics discharge home tomorrow if patient remains afebrile recommend suppression macrobid for duration of (3) UTI (urinary tract infection) Current Visit: No Status: Acute Qualifiers: Urinary tract infection type: U Hematuria presence: H Indwelling urinary catheter type: I Encounter type: E Subjective - Subjective Date of service: 07/29/16 Principal diagnosis: pyleonephritis Interval history: Patient with findings of +blood cultures. She was initiated on gentamicin. Last temp spike at [place]. Patient report feeling much better. Patient reports: no new complaints Objective - Vital Signs Vital Signs: Vital Signs - 12hr 07/29/16 07/29/16 07/29/16 03:02 03:32 04:02 Temperature Pulse Rate 99 H 94 H 94 H Respiratory Rate Blood Pressure 128/71 128/76 126/77 07/29/16 07/29/16 07/29/16 04:32 04:52 07:42 Temperature 99.0 F Pulse Rate 101 H 100 H Respiratory Rate Blood Pressure 144/71 116/73 07/29/16 07/29/16 07/29/16 08:00 11:30 11:39 Temperature 98.5 F 98.3 F Pulse Rate 98 H Respiratory 18 16 Rate Blood Pressure 131/90 - Exam FHR: category 1 Uterine Contraction Monitor Mode: External - Labs Labs: Abnormal Labs 07/27/16 07/27/16 07/27/16 10:35 10:35 10:35 WBC 17.7 H Creatinine 0.5 L Urine WBC (Auto) 48.0 H
[2016-07-29] MEDS: PERCOCET 5/325 PO PRN (20:07)
[2016-07-30] MEDS: GARAMYCIN/NS 100 MG/100 ML 100 MG/100 ML BAG IV SCH ×3 (03:35→19:06)
[2016-07-30] MEDS: ceFAZolin 2 GM in NACL 0.9% 100 ML IV SCH ×2 (06:31→14:20)
--- NOTE | 2016-07-30 08:05 | Admit Criteria Form ---
Admission Criteria Documentation: PYELONEPHRITIS, ACUTE Clinical Indications for Admission to Inpatient Care (Place 'X' for any and all applicable criteria): Admission is indicated for ANY ONE of the following 1,2,3,4,5 [ ]I. Outpatient treatment has failed or is not feasible (eg, multidrug- resistant organism).5 [X]II. beyond 24 weeks' gestation6 [ ]III. Hemodynamic instability [ ]IV. Immunocompromised state (eg, AIDS, diabetes, sickle cell disease) [ ]V. Known renal or urologic abnormalities (eg, indwelling catheter, structural abnormalities, renal calculi, urinary stent, previous urologic surgery) [ ]. Condition that requires drainage procedure, including ANY ONE of the following: [ ]a) Urinary obstruction [ ]b) Pyelitis [ ]c) Pyonephrosis [ ]d) Renal or perinephric abscess [ ]e) Emphysematous pyelonephritis 7 [ ]VII. Inpatient admission required rather than observation care (Also use Pyelonephritis, Acute: Observation Care Criteria as appropriate) because of ANY ONE of the following: [ ]a) High fever or infection requiring inpatient admission as indicated by ANY ONE of [id number] [ ]A. Documented bacteremia [ ]B. Temp>104.9 [id number] (oral) [ ]C. Temp>103.10F (oral) or <96.80F (rectal) that does not respond to all emergency treatment [ ]b) Acute renal failure [ ]c) Other significant finding or clinical condition judged not to be within the scope of observation care [ ]d) IV fluid to replace significant ongoing (eg, for over 24hrs) losses (> 3 L/m2 per day) [ ]e) Other condition,treatment or monitoring requiring inpatient admission The original [facility] content created by [employer] has been revised. The portions of the content which have been revised are identified through the use of italic text or in bold, and [facility] has neither reviewed nor approved the modified material. All other unmodified content is copyright [facility]. Please see references footnoted in the original [facility] edition 2016 Admission Criteria Met: Yes
--- NOTE | 2016-07-30 08:19 | Progress Note ---
Assessment and Plan - Patient Problems (1) uterine contractions Current Visit: Yes Status: Acute (2) Febrile illness Current Visit: Yes Status: Acute Plan to address problem: clinical improvement discharge today if remains afebrile (3) UTI (urinary tract infection) Current Visit: No Status: Acute Qualifiers: Urinary tract infection type: U Hematuria presence: H Indwelling urinary catheter type: I Encounter type: E Subjective - Subjective Date of service: 07/30/16 Principal diagnosis: pyleonephritis Interval history: Patient's last temp spike 100.4 around 1999. Patient without complaints. If patient remains afebrile for 24hours will discharge home Patient reports: no new complaints Objective - Vital Signs Vital Signs: Vital Signs - 12hr 07/29/16 07/29/16 07/30/16 21:07 22:30 00:00 Temperature 98.0 F 98.0 F Pulse Rate Pulse Rate [ 92 H From Monitor] Respiratory 18 18 Rate Blood Pressure Blood Pressure 98/53 [Right Arm] O2 Sat by Pulse 99 Oximetry 07/30/16 07/30/16 07/30/16 00:34 03:25 03:30 Temperature 98.2 F Pulse Rate 98 H 83 Pulse Rate [ 83 From Monitor] Respiratory 18 Rate Blood Pressure 98/53 111/64 Blood Pressure 111/64 [Right Arm] O2 Sat by Pulse 98 Oximetry 07/30/16 07/30/16 07/30/16 07:31 07:32 07:35 Temperature 98.0 F Pulse Rate 90 90 Pulse Rate [ 84 From Monitor] Respiratory 20 Rate Blood Pressure 116/77 Blood Pressure 116/77 [Right Arm] O2 Sat by Pulse 98 99 Oximetry - Exam Abdomen: Present: normal appearance - Labs Labs: Abnormal Labs 07/27/16 07/27/16 07/27/16 10:35 10:35 10:35 WBC 17.7 H Creatinine 0.5 L Urine WBC (Auto) 48.0 H
--- NOTE | 2016-07-30 08:22 | Discharge Summary ---
Providers - Providers Date of Admission: 07/27/16 11:18 Date of discharge: 07/30/16 Attending physician: RONAL REDDY Primary care physician: RONY RICKETTS MD Hospitalization Reason for admission: other ( contractions) Procedure: other (IV antibiotics and NST) Discharge diagnosis: other (Pyleonephritis; febrile illness) Hospital course: Patient seen in triage for contractions. Noted to have elevated temperatures. UA +. +blood cultures. patient started on IV antibiotics. patient discharged afebrile on maintenance po abx Condition at discharge: Good Disposition: DISCHARGED TO HOME OR SELFCARE - Discharge Diagnoses (1) uterine contractions Status: Acute (2) Febrile illness Status: Acute (3) UTI (urinary tract infection) Status: Acute Qualifiers: Urinary tract infection type: U Hematuria presence: H Indwelling urinary catheter type: I Encounter type: E Plan - Discharge Medications Prescriptions: Nitrofurantoin Macrocrysta(Nf) [Macrodantin CAP] 100 mg PO QDAY #30 capsule - Provider Discharge Summary Activity: no heavy lifting 4 weeks, no strenuous exercise Diet: routine Instructions: routine Additional instructions: [] Smoking cessation referral if applicable(refer to patient education folder for contact #) [] Refer to [facility]'s [facility] Booklet Call your doctor immediately for: * Fever > 100.5 * Heavy vaginal bleeding ( >1 pad per hour) * Severe persistent headache * Shortness of breath * Reddened, hot, painful area to leg or breast * Drainage or odor from incision. * Keep incision clean and dry at all times and follow doctor's instructions regarding bathing/showering followup in one week - Follow up plan
[2016-07-30] MEDS: PRENATAL VITAMIN PO SCH (10:18)
[2016-07-30] MEDS: LACTATED RINGERS 1,000 ML IV SCH (13:13)
[2016-07-30] MEDS ORDERED: ATIVAN ONE (15:10)
[2016-07-30] MEDS ORDERED: MAGNESIUM SULFATE 4GM/100ML 0 GM/0 ML BAG IV ONE (15:10)
[2016-07-30 19:43] VITALS: BP 116/74
== END 2016-07-30 20:35 | disposition home or self-care (01) | DRG 781 ==
LOC: TRG 09:35 → LD 11:18 → UNDOADMOB 11:18 → LD 07-28 08:21 → OBSVTOIN 07-30 08:20 → INTOOBSV 07-30 08:20 → UNDODISIN 07-30 20:35
PROVIDERS: ADMIT Obstetrics & Gynecology; ATTEND Obstetrics & Gynecology
DX: O23.03 Infections of kidney in pregnancy, third trimester (principal); O75.2 Pyrexia during labor, not elsewhere classified; O99.213 Obesity complicating pregnancy, third trimester; E66.01 Morbid (severe) obesity due to excess calories; O62.8 Other abnormalities of forces of labor; O34.211 Maternal care for low transverse scar from previous cesarean delivery; Z3A.35 35 weeks gestation of pregnancy; Z68.36 Body mass index [BMI] 36.0-36.9, adult
CPT/HCPCS: 36415; 76819; 81001; 82565; 83615; 84450; 84460; 84550; 85027; 86850; 86900; 86901; 87040; 87076; 87086; 87186; G0378; J0690; J1580; J2060; J2270; J2590; J3475; J7120; Q0169

== ENCOUNTER 2016-08-13 12:15 | Outpatient (CLI) | payer BC, MEDICAID ==
[2016-08-13 12:48] VITALS: BP 130/84
== END 2016-08-13 13:40 | disposition home or self-care (01) ==
LOC: TRG 12:15
DX: O47.1 False labor at or after 37 completed weeks of gestation (principal); Z3A.37 37 weeks gestation of pregnancy

== ENCOUNTER 2017-08-03 17:40 | Emergency (ER) | payer BC, MEDICAID ==
--- NOTE | 2017-08-03 19:29 | Emergency Department Report ---
ED General Adult HPI - General Chief complaint: Extremity Injury, Lower Stated complaint: LEFT KNEE PAIN Time Seen by Provider: 08/03/17 19:06 Source: patient, family Mode of arrival: Ambulatory Limitations: No Limitations - History of Present Illness Initial comments: This is a 19-year-old female here for left knee pain and swelling the cervical and on for months. She reports she injured her left knee but didn't seek medical attention. She said the pain is getting worse. She is also concerned about abnormal menses with history of tubal ligation. Patient says she thinks she has a urinary tract infection and would like to have a urine test done to check. She does have access to medical care. Pain to left knee is 8 out of 10 a can. Exacerbated by movement and relieved with rest. No medication taken prior to coming to the hospital. Denies any abdominal pain. Last menstrual period was 07/28/2017 but she just says it is not regular. Denies any nausea or vomiting. She says she is having lower back pain on both sides. Denies knowing if she has fever but reports that she has chills. Denies any chest pain or shortness of breath. MD Complaint: left knee pain, urinary burning -: month(s) Location: left (knee), lower extremity Radiation: non-radiation Severity scale (0 -10): 8 Quality: burning, aching Consistency: intermittent Improves with: rest Worsens with: movement Associated Symptoms: fever/chills, other (urinary burning and lower back pain). denies: confusion, chest pain, cough, diaphoresis, headaches, loss of appetite , malaise, nausea/vomiting, rash, seizure, shortness of breath, syncope, weakness Treatments Prior to Arrival: none - Related Data Previous Rx's Medication Instructions Recorded Last Taken Type NIFEdipine 10 mg PO TID #90 cap 07/13/16 Unknown Rx Nitrofurantoin Macrocrysta(Nf) 100 mg PO QDAY #30 capsule 07/29/16 Unknown Rx [Macrodantin CAP] Ferrous Sulfate [Feosol 325 MG tab] 325 mg PO BID #30 tablet 08/18/16 Unknown Rx oxyCODONE /ACETAMINOPHEN [Percocet 1 tab PO Q6HR PRN #30 tablet 08/18/16 Unknown Rx 5/325] Ibuprofen [Motrin 600 MG tab] 600 mg PO Q8H PRN #15 tablet 08/03/17 Unknown Rx Sulfamethoxazole/Trimethoprim 1 each PO BID 7 Days #14 tablet 08/03/17 Unknown Rx [Bactrim DS TAB] Allergies Allergy/AdvReac Type Severity Reaction Status Date / Time No Known Allergies Allergy Verified 06/12/16 11:29 ED Review of Systems ROS: Stated complaint: LEFT KNEE PAIN Other details as noted in HPI Constitutional: chills. denies: fever Eyes: denies: eye pain, eye discharge, vision change ENT: denies: ear pain, throat pain, congestion Respiratory: denies: cough, orthopnea, shortness of breath, SOB with exertion, SOB at rest, stridor, wheezing Cardiovascular: denies: chest pain, palpitations, edema, syncope Gastrointestinal: denies: abdominal pain, nausea, vomiting, diarrhea, constipation, hematemesis, melena, hematochezia Genitourinary: dysuria, abnormal menses. denies: urgency, frequency, hematuria , discharge, dyspareunia Musculoskeletal: back pain, joint swelling, arthralgia Skin: denies: rash, lesions Neurological: denies: headache, weakness, numbness, paresthesias, abnormal gait , vertigo Hematological/Lymphatic: easy bruising ED Past Medical Hx - Past Medical History Previous Medical History?: Yes Hx Hypertension: No (h/o PIH) Hx Congestive Heart Failure: No Hx Diabetes: No Hx Deep Vein Thrombosis: No Hx Renal Disease: No Hx Sickle Cell Disease: No Hx Seizures: No Hx Asthma: No Hx COPD: No Hx HIV: No Additional medical history: Abnormal menses, Left knee pain - Surgical History Past Surgical History?: Yes Additional Surgical History: x4 - Family History Family history: hypertension - Social History Smoking Status: Former Smoker Substance Use Type: Alcohol - Medications Home Medications: Home Medications Medication Instructions Recorded Confirmed Last Taken Type NIFEdipine 10 mg PO TID #90 cap 07/13/16 08/16/16 Unknown Rx Nitrofurantoin Macrocrysta(Nf) 100 mg PO QDAY #30 capsule 07/29/16 08/16/16 Unknown Rx [Macrodantin CAP] Ferrous Sulfate [Feosol 325 MG tab] 325 mg PO BID #30 tablet 08/18/16 Unknown Rx oxyCODONE /ACETAMINOPHEN [Percocet 1 tab PO Q6HR PRN #30 tablet 08/18/16 Unknown Rx 5/325] Ibuprofen [Motrin 600 MG tab] 600 mg PO Q8H PRN #15 tablet 08/03/17 Unknown Rx Sulfamethoxazole/Trimethoprim 1 each PO BID 7 Days #14 tablet 08/03/17 Unknown Rx [Bactrim DS TAB] ED Physical Exam - General Limitations: No Limitations General appearance: alert, in no apparent distress - Head Head exam: Present: atraumatic, normocephalic - Eye Eye exam: Present: normal appearance, PERRL, EOMI Pupils: Present: normal accommodation - ENT ENT exam: Present: normal exam, normal orophraynx, mucous membranes moist, TM's normal bilaterally, normal external ear exam - Neck Neck exam: Present: normal inspection, full ROM. Absent: tenderness, meningismus, lymphadenopathy - Respiratory Respiratory exam: Present: normal lung sounds bilaterally. Absent: respiratory distress, chest wall tenderness, accessory muscle use - Cardiovascular Cardiovascular Exam: Present: regular rate, normal rhythm, normal heart sounds. Absent: systolic murmur, diastolic murmur - GI/Abdominal GI/Abdominal exam: Present: soft, normal bowel sounds. Absent: distended, tenderness, guarding, rebound, rigid, organomegaly, mass, bruit, pulsatile mass , hernia - Extremities Exam Extremities exam: Present: normal inspection, full ROM (patient with full range of motion to her left knee but reports pain with flexion and extension. ), tenderness (mild tenderness to the left knee anteriorly), normal capillary refill, joint swelling (mild swelling left knee), other (No clubbing, cyanosis or edema to extremities. No neurovascular compromise and +2 pulses to all extremities). Absent: pedal edema, calf tenderness - Expanded Lower Extremity Exam Left Hip exam: Present: normal inspection, full ROM, pelvic stability. Absent: tenderness, swelling, abrasion, laceration, ecchymosis, deformity, crepidus, dislocation, erythema, external rotation, internal rotation, shortening Upper Leg exam: Present: normal inspection, full ROM. Absent: tenderness, swelling, abrasion, laceration, ecchymosis, deformity, crepidus, dislocation, erythema Knee exam: Present: full ROM (full range of motion but pain with flexion and extension), tenderness (mild tenderness anteriorly), swelling (mild swelling anterior left knee), effusion (mild), full knee extension. Absent: normal inspection, abrasion, laceration, ecchymosis, deformity, crepidus, dislocation, erythema, pain w/ pronation/supination, posterior draw sign, pain/laxity with valgus, pain/laxity with varus Lower Leg exam: Present: normal inspection, full ROM. Absent: tenderness, swelling, abrasion, laceration, ecchymosis, deformity, crepidus, dislocation, erythema, palpable cord, Joseph's sign Ankle exam: Present: normal inspection, full ROM. Absent: tenderness, swelling , abrasion, laceration, ecchymosis, deformity, crepidus, dislocation, erythema, anterior draw sign Foot/Toe exam: Present: normal inspection, full ROM. Absent: tenderness, swelling, abrasion, laceration, ecchymosis, deformity, crepidus, dislocation, erythema, amputation, puncture wound, foreign body, calcaneal tenderness, tenderness at base of 5th metatarsal, nail avulsion, subungual hematoma Neuro vascular tendon exam: Present: no vascular compromise, pulse deficit. Absent: abnormal cap refill, motor deficit, sensory deficit, tendon deficit, extremity cold to touch, pallor, abnormal 2-point discrimination, decreased fine /light touch, foot drop, peroneal nerve deficit, significant pain with passive ROM of distal joint Gait: Positive: observed and limited by pain - Back Exam Back exam: Present: normal inspection, full ROM, other (ambulates without any difficulties). Absent: tenderness, CVA tenderness (R), CVA tenderness (L), muscle spasm, paraspinal tenderness, vertebral tenderness, rash noted - Neurological Exam Neurological exam: Present: alert, oriented X3, normal gait, reflexes normal. Absent: motor sensory deficit - Psychiatric Psychiatric exam: Present: normal affect, normal mood - Skin Skin exam: Present: warm, dry, intact, normal color. Absent: rash ED Course Vital Signs 08/03/17 08/03/17 17:51 19:49 Temperature 99.7 F H Pulse Rate 75 Respiratory 18 18 Rate Blood Pressure 139/87 O2 Sat by Pulse 98 Oximetry Vital Signs 08/03/17 08/03/17 08/03/17 17:51 19:49 21:42 Temperature 99.7 F H 98.7 F Pulse Rate 75 85 Respiratory 18 18 18 Rate Blood Pressure 139/87 Blood Pressure 158/90 [Right] O2 Sat by Pulse 98 98 Oximetry - Reevaluation(s) Reevaluation #1: 08/03/17 20:44 Patient given Motrin 800 mg for left knee pain for relief of pain. Still awaiting x-ray. She is found to have a urinary tract infection and was given Rocephin 1 g IM Reevaluation #2: 08/03/17 21:58 Patient is stable, left knee x-ray without any fracture or dislocation but mild effusion. Pain is controlled and her vital signs are stable she is afebrile. - Orthopedic Splinting/Casting Injury #1 Side: left Lower Extremity Injury Location: knee Lower Extremity Immobilizer: Neville wrap Additional Comments: Patient with good color, sensation, movement and temperature to extremities. + 2 pedal pulses. ED Medical Decision Making - Radiology Data Radiology results: report reviewed X-ray of left knee shows no acute abnormality mild degree joint effusion. No soft tissue swelling and no foreign body and bone mineralization is normal. This is dictated by radiologist and images reviewed by myself. - Medical Decision Making This is a 27-year-old female here with multiple complaints to include urinary burning, chills, lower back pain and thinking that she has a urinary tract infection. She is also complaining of abnormal menses but she reports that she had her last specialist like was 07/28/2017. She is also reporting left knee pain and it's been ongoing for months from previous seizure which she did not seek any medical attention. She is reporting swelling. Patient is here to be checked. This patient was seen by myself and examined and she has mild swelling to left knee with tenderness to palpate anteriorly. Mild effusion without any crepitus and no joint deformity. She has full range of motion but reports some pain with flexion and extension. Patient abdominal and back exam is normal. She had low-grade fever which resolved after Motrin suspect from her urinalysis showing that she has a UTI. X-ray of left knee shows no fracture dislocation, mild effusion and no soft tissue swelling. Urinalysis shows patient with large amount of white count with large leukocyte Estrace and 1+ bacteria and she is experiencing dysuria. I explained to patient her urine results along with x- ray results and she voiced understanding. A/P 1: Left knee effusion: We'll refer to orthopedics, Neville wrap. Patient has no sign of septic knee. She has no redness and minimal tenderness to palpation and she is able to move her knee without any difficulties except for minimal pain 2: Left knee pain-this is been ongoing for months after she had injury. Patient given Motrin 800 mg emergency room which resolved her knee pain. 3: Acute cystitis without hematuria: Patient given Rocephin 1 g I am and emergency room and plan to discharge home and Bactrim. Urine culture sent 4: Bilateral lower back pain: Resolved with Motrin and suspect source is from urinary tract infection. 5: Abnormal menses: Patient said this has been ongoing for over a year and she just had her period on 07/28/2017 and here to be checked to see if there is anything wrong why she is not regular. I discussed with her that she needs to follow up with [facility] and I'll refer her to one. Prescription given for Motrin 600 mg when necessary and Bactrim DS for urinary tract infection Patient educated on medication, Rice therapy, diagnosis, urinalysis results, x- ray reports and treatment plan and she needs to follow-up with orthopedic doctor regarding chronic left knee pain with effusion. Vital signs are stable and she is afebrile. Patient discharged home in stable condition to follow up with orthopedic doctor in 2-3 days . I discussed with her that if her condition worsens she is to return to the emergency room otherwise follow-up as referred to orthopedics and [facility]. She voiced understanding and discharge instruction, treatment plan and teaching Critical care attestation.: If time is entered above; I have spent that time in minutes in the direct care of this critically ill patient, excluding procedure time. ED Disposition Clinical Impression: Acute cystitis without hematuria, Left anterior knee pain, Effusion, left knee , Abnormal menstrual cycle, Dysuria Lower back pain Qualifiers: Chronicity: acute Back pain laterality: bilateral Sciatica presence: without sciatica Qualified Code(s): M54.5 - Low back pain Disposition: - TO HOME OR SELFCARE Is pt being admited?: No Does the pt Need Aspirin: No Condition: Stable Instructions: Knee Effusion (ED), Arthralgia (ED), Knee Pain (ED), Knee Exercises (GEN), RICE Therapy (ED), Dysuria (ED), Back Pain (ED) Additional Instructions: Please follow up with primary care as recommended Increase fluid intake Take medication as prescribed . Take Motrin for pain but please make sure he eats while taking medication as this can cause irritation to stomach lining this taken an empty stomach Please follow-up with [facility] as recommended for abnormal menses. Referred to discharge instruction in Rice therapy. Easy diet consists of banana, applesauce ,Rice and toast. follow-up with orthopedic doctor as instructed. Chronic left knee pain If your symptoms worsen, return to the emergency room Prescriptions: Ibuprofen [Motrin 600 MG tab] 600 mg PO Q8H PRN #15 tablet PRN Reason: Pain Sulfamethoxazole/Trimethoprim [Bactrim DS TAB] 1 each PO BID 7 Days #14 tablet Referrals: PRIMARY CARE, [Primary Care Provider] - 2-3 Days [facility] [place] [Outside] - 2-3 Days DIANA HORVATH MD [Staff Physician] - 2-3 Days [facility] [Provider Group] - 2-3 Days Forms: Work/School Release Form(ED)
[2017-08-03] MEDS ORDERED: MOTRIN PO ONE (19:30)
[2017-08-03 19:54] LABS: Bacteria,Urine 1+ /HPF (Negative); Bilirubin,Urine NEG (Negative); Blood,Urine NEG (Negative); Color,Urine Yellow (Yellow); Mucus,Urine 3+ /HPF; Protein,Urine <15 mg/dL mg/dL (Negative); Urobilinogen,Urine < 2.0 mg/dL (<2.0)
[2017-08-03] MEDS ORDERED: ROCEPHIN IM STA (20:42)
[2017-08-03] MEDS ORDERED: XYLOCAINE 1% MPF 5 mL INFILTRATI ONE (20:42)
[2017-08-03 21:43] VITALS: BP 158/90
--- NOTE | 2017-08-03 21:44 | XRay Report ---
FINAL REPORT PROCEDURE: XR KNEE 3V LT TECHNIQUE: LEFT knee radiographs, AP, lateral and sunrise views. CPT 64714 HISTORY: left knee pain and swelling COMPARISON: 07/19/2015 FINDINGS: Fracture (s) and/or Dislocation(s): None . Alignment: Normal . Joint space(s): Mild degree joint effusion is noted.. Soft tissues: Normal . Bone mineralization: Normal . Foreign bodies: None . IMPRESSION: No acute abnormality Mild degree joint effusion.
== END 2017-08-03 22:19 | disposition home or self-care (01) ==
LOC: ED 17:40
DX: M25.462 Effusion, left knee (principal); N30.01 Acute cystitis with hematuria; N92.6 Irregular menstruation, unspecified; Z87.891 Personal history of nicotine dependence
CPT/HCPCS: 73562; 81001; 87086; 96372; 99284; J0696

== ENCOUNTER 2018-06-20 01:58 | Emergency (ER) | payer OTHER ==
[2018-06-20 03:17] LABS: Basophils # (Auto) 0.1 K/mm3 (0.0-0.1); Basophils % (Auto) 0.7 % (0.0-1.8); Eosinophils # (Auto) 0.1 K/mm3 (0.0-0.4); Eosinophils % (Auto) 0.8 % (0.0-4.3); Hematocrit 35.7 % (30.3-42.9); Lymphocytes # (Auto) 2.4 K/mm3 (1.2-5.4); Lymphocytes % (Auto) 33.2 % (13.4-35.0); Mean Corpuscular HGB Conc 34 % (30-34); Mean Corpuscular Volume 87 fl (79-97); Monocytes # (Auto) 0.4 K/mm3 (0.0-0.8); Monocytes % (Auto) 5.2 % (0.0-7.3); Platelet Count 311 K/mm3 (140-440)
[2018-06-20 03:34] LABS: Alanine Aminotransferase 11 units/L (7-56); Albumin 3.7 g/dL (3.9-5); BUN/Creatinine Ratio 9; Blood Urea Nitrogen 6 mg/dL (7-17); Calcium 8.8 mg/dL (8.4-10.2); Hemolysis Index 11
[2018-06-20 05:55] LABS: Bilirubin,Urine NEG (Negative); Blood,Urine LG (Negative); Color,Urine Yellow (Yellow); Mucus,Urine 3+ /HPF; Protein,Urine <15 mg/dL mg/dL (Negative)
--- NOTE | 2018-06-20 08:03 | Emergency Department Report ---
ED Abdominal Pain HPI - General Chief Complaint: Dizziness Stated Complaint: ABD PAIN/NAUSEA/DIZZY/NECK/EAR PAIN Source: patient Mode of arrival: Ambulatory Limitations: No Limitations - History of Present Illness Initial Comments: This is a 28-year-old -Tongan female who presents with abdominal pain and right ear pain since yesterday. Patient also reports nausea without vomiting and dizziness. Patient states she thinks she ate something that caused symptoms. She reports abdominal pain in his upper abdomen, sharp in intensity, and nonradiating. Last menstrual period 06/16/2018. Patient states she is currently on menses than this pain is a little different from normal cramping. She denies diarrhea, chest pain, vaginal discharge, back pain, or fever. MD Complaint: abdominal pain Onset/Timin -: days(s) Location: diffuse Radiation: none Migration to: no migration Severity: moderate Severity scale (0 -10): 8 Quality: sharp Consistency: intermittent Improves With: nothing Worsens With: nothing Associated Symptoms: nausea. denies: vomiting, diarrhea, fever, chills, constipation, dysuria, hematemesis, hematochezia, melena, hematuria, anorexia, syncope - Related Data LMP Date: 06/16/18 Previous Rx's Medication Instructions Recorded Last Taken Type NIFEdipine 10 mg PO TID #90 cap 07/13/16 Unknown Rx Nitrofurantoin Macrocrysta(Nf) 100 mg PO QDAY #30 capsule 07/29/16 Unknown Rx [Macrodantin CAP] Ferrous Sulfate [Feosol 325 MG tab] 325 mg PO BID #30 tablet 08/18/16 Unknown Rx oxyCODONE /ACETAMINOPHEN [Percocet 1 tab PO Q6HR PRN #30 tablet 08/18/16 Unknown Rx 5/325] Ibuprofen [Motrin 600 MG tab] 600 mg PO Q8H PRN #15 tablet 08/03/17 Unknown Rx Sulfamethoxazole/Trimethoprim 1 each PO BID 7 Days #14 tablet 08/03/17 Unknown Rx [Bactrim DS TAB] Acetaminophen/Codeine [Tylenol 1 tab PO Q6H PRN #12 tab 01/13/18 Unknown Rx /Codeine # 3 tab] Ibuprofen [Motrin] 600 mg PO Q8H PRN #20 tablet 01/13/18 Unknown Rx Sulfamethoxazole/Trimethoprim 1 each PO BID #14 tablet 01/13/18 Unknown Rx [Bactrim DS TAB] Amoxicillin [Trimox CAP] 500 mg PO Q8H #20 capsule 06/20/18 Unknown Rx Ibuprofen [Motrin 600 MG tab] 600 mg PO Q8H PRN #20 tablet 06/20/18 Unknown Rx Ondansetron [Zofran Odt] 4 mg PO Q8HR PRN #15 tab.rapdis 06/20/18 Unknown Rx Allergies Allergy/AdvReac Type Severity Reaction Status Date / Time No Known Allergies Allergy Verified 06/12/16 11:29 ED Review of Systems ROS: Stated complaint: ABD PAIN/NAUSEA/DIZZY/NECK/EAR PAIN Other details as noted in HPI Constitutional: denies: chills, fever ENT: ear pain (right ear). denies: throat pain Respiratory: denies: cough, shortness of breath, wheezing Cardiovascular: denies: chest pain, palpitations Gastrointestinal: abdominal pain, nausea. denies: diarrhea Musculoskeletal: denies: back pain, joint swelling, arthralgia Skin: denies: rash, lesions Neurological: vertigo. denies: headache, weakness, paresthesias Psychiatric: denies: anxiety, depression ED Past Medical Hx - Past Medical History Previous Medical History?: Yes Hx Hypertension: (h/o PIH) Hx Congestive Heart Failure: No Hx Diabetes: No Hx Deep Vein Thrombosis: No Hx Renal Disease: No Hx Sickle Cell Disease: No Hx Seizures: No Hx Asthma: No Hx COPD: No Hx HIV: No Additional medical history: Abnormal menses, Left knee pain - Surgical History Past Surgical History?: Yes Additional Surgical History: x4 - Social History Smoking Status: Current Every Day Smoker Substance Use Type: None - Medications Home Medications: Home Medications Medication Instructions Recorded Confirmed Last Taken Type NIFEdipine 10 mg PO TID #90 cap 07/13/16 08/16/16 Unknown Rx Nitrofurantoin Macrocrysta(Nf) 100 mg PO QDAY #30 capsule 07/29/16 08/16/16 Unknown Rx [Macrodantin CAP] Ferrous Sulfate [Feosol 325 MG tab] 325 mg PO BID #30 tablet 08/18/16 Unknown Rx oxyCODONE /ACETAMINOPHEN [Percocet 1 tab PO Q6HR PRN #30 tablet 08/18/16 Unknown Rx 5/325] Ibuprofen [Motrin 600 MG tab] 600 mg PO Q8H PRN #15 tablet 08/03/17 Unknown Rx Sulfamethoxazole/Trimethoprim 1 each PO BID 7 Days #14 tablet 08/03/17 Unknown Rx [Bactrim DS TAB] Acetaminophen/Codeine [Tylenol 1 tab PO Q6H PRN #12 tab 01/13/18 Unknown Rx /Codeine # 3 tab] Ibuprofen [Motrin] 600 mg PO Q8H PRN #20 tablet 01/13/18 Unknown Rx Sulfamethoxazole/Trimethoprim 1 each PO BID #14 tablet 01/13/18 Unknown Rx [Bactrim DS TAB] Amoxicillin [Trimox CAP] 500 mg PO Q8H #20 capsule 06/20/18 Unknown Rx Ibuprofen [Motrin 600 MG tab] 600 mg PO Q8H PRN #20 tablet 06/20/18 Unknown Rx Ondansetron [Zofran Odt] 4 mg PO Q8HR PRN #15 tab.rapdis 06/20/18 Unknown Rx ED Physical Exam - General Limitations: No Limitations General appearance: alert, in no apparent distress - ENT ENT exam: Present: normal orophraynx, mucous membranes moist. Absent: TM's normal bilaterally (erythematous bulging TM on the right) - Neck Neck exam: Present: normal inspection - Respiratory Respiratory exam: Present: normal lung sounds bilaterally. Absent: respiratory distress - Cardiovascular Cardiovascular Exam: Present: regular rate, normal rhythm. Absent: systolic murmur, diastolic murmur, rubs, gallop - GI/Abdominal GI/Abdominal exam: Present: soft, normal bowel sounds. Absent: distended, tenderness, guarding, rebound, rigid, mass, pulsatile mass - Back Exam Back exam: Absent: CVA tenderness (R), CVA tenderness (L) - Neurological Exam Neurological exam: Present: alert, oriented X3 - Psychiatric Psychiatric exam: Present: normal affect, normal mood - Skin Skin exam: Present: warm, dry, intact, normal color. Absent: rash ED Course Vital Signs 06/20/18 06/20/18 02:05 02:14 Temperature 97.9 F Pulse Rate 90 70 Respiratory 20 Rate Blood Pressure 137/88 O2 Sat by Pulse 98 Oximetry ED Medical Decision Making - Lab Data Result diagrams: 06/20/18 03:00 06/20/18 03:00 Lab Results 06/20/18 06/20/18 06/20/18 Range/Units 03:00 03:00 03:00 WBC 7.3 (4.5-11.0) K/mm3 RBC 4.10 (3.65-5.03) M/mm3 Hgb 12.0 (10.1-14.3) gm/dl Hct 35.7 (30.3-42.9) % MCV 87 (79-97) fl MCH 29 (28-32) pg MCHC 34 (30-34) % RDW 14.0 (13.2-15.2) % Plt Count 311 (140-440) K/mm3 Lymph % (Auto) 33.2 (13.4-35.0) % Moca % (Auto) 5.2 (0.0-7.3) % Eos % (Auto) 0.8 (0.0-4.3) % Baso % (Auto) 0.7 (0.0-1.8) % Lymph # 2.4 (1.2-5.4) K/mm3 Moca # 0.4 (0.0-0.8) K/mm3 Eos # 0.1 (0.0-0.4) K/mm3 Baso # 0.1 (0.0-0.1) K/mm3 Seg Neutrophils % 60.1 (40.0-70.0) % Seg Neutrophils # 4.4 (1.8-7.7) K/mm3 Sodium 143 (137-145) mmol/L Potassium 4.2 (3.6-5.0) mmol/L Chloride 106.0 (98-107) mmol/L Carbon Dioxide 26 (22-30) mmol/L Anion Gap 15 mmol/L BUN 6 L (7-17) mg/dL Creatinine 0.7 (0.7-1.2) mg/dL Estimated GFR > 60 ml/min BUN/Creatinine Ratio 9 % Glucose 105 H (65-100) mg/dL Calcium 8.8 (8.4-10.2) mg/dL Total Bilirubin < 0.20 (0.1-1.2) mg/dL AST 13 (5-40) units/L ALT 11 (7-56) units/L Alkaline Phosphatase 70 (35-129) units/L Total Protein 7.1 (6.3-8.2) g/dL Albumin 3.7 L (3.9-5) g/dL Albumin/Globulin Ratio 1.1 % HCG, Qual Negative (Negative) Urine Color (Yellow) Urine Turbidity (Clear) Urine pH (5.0-7.0) Ur Specific [place] (1.003-1.030) Urine Protein (Negative) mg/dL Urine Glucose (UA) (Negative) mg/dL Urine Ketones (Negative) mg/dL Urine Blood (Negative) Urine Nitrite (Negative) Urine Bilirubin (Negative) Urine Urobilinogen (<2.0) mg/dL Ur Leukocyte Esterase (Negative) Urine WBC (Auto) (0.0-6.0) /HPF Urine RBC (Auto) (0.0-6.0) /HPF U Epithel Cells (Auto) (0-13.0) /HPF Urine Mucus /HPF 06/20/18 Range/Units Unknown WBC (4.5-11.0) K/mm3 RBC (3.65-5.03) M/mm3 Hgb (10.1-14.3) gm/dl Hct (30.3-42.9) % MCV (79-97) fl MCH (28-32) pg MCHC (30-34) % RDW (13.2-15.2) % Plt Count (140-440) K/mm3 Lymph % (Auto) (13.4-35.0) % Moca % (Auto) (0.0-7.3) % Eos % (Auto) (0.0-4.3) % Baso % (Auto) (0.0-1.8) % Lymph # (1.2-5.4) K/mm3 Moca # (0.0-0.8) K/mm3 Eos # (0.0-0.4) K/mm3 Baso # (0.0-0.1) K/mm3 Seg Neutrophils % (40.0-70.0) % Seg Neutrophils # (1.8-7.7) K/mm3 Sodium (137-145) mmol/L Potassium (3.6-5.0) mmol/L Chloride (98-107) mmol/L Carbon Dioxide (22-30) mmol/L Anion Gap mmol/L BUN (7-17) mg/dL Creatinine (0.7-1.2) mg/dL Estimated GFR ml/min BUN/Creatinine Ratio % Glucose (65-100) mg/dL Calcium (8.4-10.2) mg/dL Total Bilirubin (0.1-1.2) mg/dL AST (5-40) units/L ALT (7-56) units/L Alkaline Phosphatase (35-129) units/L Total Protein (6.3-8.2) g/dL Albumin (3.9-5) g/dL Albumin/Globulin Ratio % HCG, Qual (Negative) Urine Color Yellow (Yellow) Urine Turbidity Slightly-cloudy (Clear) Urine pH 5.0 (5.0-7.0) Ur Specific [place] 1.035 H (1.003-1.030) Urine Protein <15 mg/dl (Negative) mg/dL Urine Glucose (UA) Neg (Negative) mg/dL Urine Ketones Neg (Negative) mg/dL Urine Blood Lg (Negative) Urine Nitrite Neg (Negative) Urine Bilirubin Neg (Negative) Urine Urobilinogen 2.0 (<2.0) mg/dL Ur Leukocyte Esterase Neg (Negative) Urine WBC (Auto) 2.0 (0.0-6.0) /HPF Urine RBC (Auto) 4.0 (0.0-6.0) /HPF U Epithel Cells (Auto) 3.0 (0-13.0) /HPF Urine Mucus 3+ /HPF - Medical Decision Making Patient is stable and was examined by me. Vitals stable. Obtained CMP, CBC, urine hCG, & UA. All unremarkable. On focal exam bulging erythematous TM on the right, otitis media. Start amoxicillin and ibuprofen. No abdominal tenderness on focal exam. Radiographs not indicated. Findings are susceptible of gastroenteritis. We'll start Zofran for nausea. Instructed to increase fluid intake and wash hands frequently. Discussed ER plans with patient and she agreed. Patient discharged home stable. Referral to PCP for follow-up. Critical care attestation.: If time is entered above; I have spent that time in minutes in the direct care of this critically ill patient, excluding procedure time. ED Disposition Clinical Impression: Otalgia of right ear, Nausea alone, Gastroenteritis Abdominal pain Qualifiers: Abdominal location: generalized Qualified Code(s): R10.84 - Generalized abdominal pain Otitis media Qualifiers: Otitis media type: suppurative Chronicity: acute Laterality: right Recurrence: non-recurrent Spontaneous tympanic membrane rupture: without spontaneous rupture Qualified Code(s): H66.001 - Acute suppurative otitis media without spontaneous rupture of ear drum, right ear Disposition: DC-01 TO HOME OR SELFCARE Is pt being admited?: No Does the pt Need Aspirin: No Condition: Stable Instructions: Gastroenteritis (ED), Otitis Media (ED) Additional Instructions: Give Tylenol or ibuprofen for pain every 6-8 hours. Take antibiotics as prescribed to avoid recurrence of the ear infection. Avoid high altitudes, may worsen the pain during ear infection. Frequent hand washing is important to reduce spread. Prompt disinfection of contaminated surfaces with household chlorine bleach-based conference reservationist and washing of soiled clothing and bedding should be advised. If food or water is thought to be contaminated, it should be avoided. Increase fluid intake. Drinks high in sugars such as carbonated soft drinks, fruit juice, and highly sugared liquids should be avoided. If symptoms are not improving over the next 2-3 days follow-up with the primary care provider from referral list below. Prescriptions: Ibuprofen [Motrin 600 MG tab] 600 mg PO Q8H PRN #20 tablet PRN Reason: Pain Amoxicillin [Trimox CAP] 500 mg PO Q8H #20 capsule Ondansetron [Zofran Odt] 4 mg PO Q8HR PRN #15 tab.rapdis PRN Reason: Nausea Referrals: [place] ANKIT RUGGIERO MD [Primary Care Provider] - 3-5 Days [facility] [place] [Outside] - 3-5 Days CJ SARAVIA MD [Staff Physician] - 3-5 Days Forms: Work/School Release Form(ED) Time of Disposition: 08:07
[2018-06-20 08:22] VITALS: BP 121/80
== END 2018-06-20 08:21 | disposition home or self-care (01) ==
LOC: ED 01:58
DX: K52.9 Noninfective gastroenteritis and colitis, unspecified (principal); H66.91 Otitis media, unspecified, right ear; F17.200 Nicotine dependence, unspecified, uncomplicated
CPT/HCPCS: 36415; 80053; 81001; 84703; 85025; 93005; 93010

== ENCOUNTER 2018-06-23 00:49 | Emergency (ER) | payer OTHER ==
[2018-06-23 01:02] VITALS: BP 135/85
[2018-06-23] MEDS ORDERED: TYLENOL PO ONE (01:02)
[2018-06-23] MEDS ORDERED: TYLENOL ONE (01:05)
--- NOTE | 2018-06-23 07:46 | Emergency Department Report ---
ED ENT HPI - General Chief complaint: Earache Stated complaint: HEADACHE Source: patient Mode of arrival: Ambulatory Limitations: No Limitations - History of Present Illness Initial comments: This is a 28-year-old -Togolese female who presents to the emergency room with right ear pain that is radiating to the neck for 1 day. Patient is also complaining of a numbness and sensation of pulling when she rub her left eye. She reports pain is throbbing sensation that is intermittent. Patient denies visual changes, hearing changes, discharge from the ear, fever, cough, recent injury, nausea or vomiting. MD complaint: ear pain (right) Onset/Timin -: days(s) Location: R ear Severity: mild Severity scale (0 -10): 3 Quality: other (throbbing) Consistency: intermittent Improves with: none Worsens with: none Associated Symptoms: denies: fever, cough, gum swelling, toothache, pain with swallowing, sore throat, tinnitus, hearing loss, discharge from ear, rhinorrhea - Related Data Previous Rx's Medication Instructions Recorded Last Taken Type NIFEdipine 10 mg PO TID #90 cap 07/13/16 Unknown Rx Nitrofurantoin Macrocrysta(Nf) 100 mg PO QDAY #30 capsule 07/29/16 Unknown Rx [Macrodantin CAP] Ferrous Sulfate [Feosol 325 MG tab] 325 mg PO BID #30 tablet 08/18/16 Unknown Rx oxyCODONE /ACETAMINOPHEN [Percocet 1 tab PO Q6HR PRN #30 tablet 08/18/16 Unknown Rx 5/325] Ibuprofen [Motrin 600 MG tab] 600 mg PO Q8H PRN #15 tablet 08/03/17 Unknown Rx Sulfamethoxazole/Trimethoprim 1 each PO BID 7 Days #14 tablet 08/03/17 Unknown Rx [Bactrim DS TAB] Acetaminophen/Codeine [Tylenol 1 tab PO Q6H PRN #12 tab 01/13/18 Unknown Rx /Codeine # 3 tab] Ibuprofen [Motrin] 600 mg PO Q8H PRN #20 tablet 01/13/18 Unknown Rx Sulfamethoxazole/Trimethoprim 1 each PO BID #14 tablet 01/13/18 Unknown Rx [Bactrim DS TAB] Amoxicillin [Trimox CAP] 500 mg PO Q8H #20 capsule 06/20/18 Unknown Rx Ibuprofen [Motrin 600 MG tab] 600 mg PO Q8H PRN #20 tablet 06/20/18 Unknown Rx Ondansetron [Zofran Odt] 4 mg PO Q8HR PRN #15 tab.rapdis 06/20/18 Unknown Rx Tramadol HCl [Ultram] 50 mg PO Q6H PRN #10 tablet 06/23/18 Unknown Rx Allergies Allergy/AdvReac Type Severity Reaction Status Date / Time No Known Allergies Allergy Verified 06/12/16 11:29 ED Dental HPI - General Chief complaint: Earache Stated complaint: HEADACHE Source: patient Mode of arrival: Ambulatory Limitations: No Limitations - Related Data Previous Rx's Medication Instructions Recorded Last Taken Type NIFEdipine 10 mg PO TID #90 cap 07/13/16 Unknown Rx Nitrofurantoin Macrocrysta(Nf) 100 mg PO QDAY #30 capsule 07/29/16 Unknown Rx [Macrodantin CAP] Ferrous Sulfate [Feosol 325 MG tab] 325 mg PO BID #30 tablet 08/18/16 Unknown Rx oxyCODONE /ACETAMINOPHEN [Percocet 1 tab PO Q6HR PRN #30 tablet 08/18/16 Unknown Rx 5/325] Ibuprofen [Motrin 600 MG tab] 600 mg PO Q8H PRN #15 tablet 08/03/17 Unknown Rx Sulfamethoxazole/Trimethoprim 1 each PO BID 7 Days #14 tablet 08/03/17 Unknown Rx [Bactrim DS TAB] Acetaminophen/Codeine [Tylenol 1 tab PO Q6H PRN #12 tab 01/13/18 Unknown Rx /Codeine # 3 tab] Ibuprofen [Motrin] 600 mg PO Q8H PRN #20 tablet 01/13/18 Unknown Rx Sulfamethoxazole/Trimethoprim 1 each PO BID #14 tablet 01/13/18 Unknown Rx [Bactrim DS TAB] Amoxicillin [Trimox CAP] 500 mg PO Q8H #20 capsule 06/20/18 Unknown Rx Ibuprofen [Motrin 600 MG tab] 600 mg PO Q8H PRN #20 tablet 06/20/18 Unknown Rx Ondansetron [Zofran Odt] 4 mg PO Q8HR PRN #15 tab.rapdis 06/20/18 Unknown Rx Tramadol HCl [Ultram] 50 mg PO Q6H PRN #10 tablet 06/23/18 Unknown Rx Allergies Allergy/AdvReac Type Severity Reaction Status Date / Time No Known Allergies Allergy Verified 06/12/16 11:29 ED Review of Systems ROS: Stated complaint: HEADACHE Other details as noted in HPI Constitutional: denies: chills, fever ENT: ear pain (right). denies: throat pain Respiratory: denies: cough, shortness of breath, wheezing Cardiovascular: denies: chest pain, palpitations Gastrointestinal: denies: abdominal pain, nausea, diarrhea Skin: denies: rash, lesions Neurological: headache Psychiatric: denies: anxiety, depression ED Past Medical Hx - Past Medical History Previous Medical History?: Yes Hx Hypertension: (h/o PIH) Hx Congestive Heart Failure: No Hx Diabetes: No Hx Deep Vein Thrombosis: No Hx Renal Disease: No Hx Sickle Cell Disease: No Hx Seizures: No Hx Asthma: No Hx COPD: No Hx HIV: No Additional medical history: Abnormal menses, Left knee pain - Surgical History Past Surgical History?: Yes Additional Surgical History: x4 - Social History Smoking Status: Current Every Day Smoker Substance Use Type: None - Medications Home Medications: Home Medications Medication Instructions Recorded Confirmed Last Taken Type NIFEdipine 10 mg PO TID #90 cap 07/13/16 08/16/16 Unknown Rx Nitrofurantoin Macrocrysta(Nf) 100 mg PO QDAY #30 capsule 07/29/16 08/16/16 Unknown Rx [Macrodantin CAP] Ferrous Sulfate [Feosol 325 MG tab] 325 mg PO BID #30 tablet 08/18/16 Unknown Rx oxyCODONE /ACETAMINOPHEN [Percocet 1 tab PO Q6HR PRN #30 tablet 08/18/16 Unknown Rx 5/325] Ibuprofen [Motrin 600 MG tab] 600 mg PO Q8H PRN #15 tablet 08/03/17 Unknown Rx Sulfamethoxazole/Trimethoprim 1 each PO BID 7 Days #14 tablet 08/03/17 Unknown Rx [Bactrim DS TAB] Acetaminophen/Codeine [Tylenol 1 tab PO Q6H PRN #12 tab 01/13/18 Unknown Rx /Codeine # 3 tab] Ibuprofen [Motrin] 600 mg PO Q8H PRN #20 tablet 01/13/18 Unknown Rx Sulfamethoxazole/Trimethoprim 1 each PO BID #14 tablet 01/13/18 Unknown Rx [Bactrim DS TAB] Amoxicillin [Trimox CAP] 500 mg PO Q8H #20 capsule 06/20/18 Unknown Rx Ibuprofen [Motrin 600 MG tab] 600 mg PO Q8H PRN #20 tablet 06/20/18 Unknown Rx Ondansetron [Zofran Odt] 4 mg PO Q8HR PRN #15 tab.rapdis 06/20/18 Unknown Rx Tramadol HCl [Ultram] 50 mg PO Q6H PRN #10 tablet 06/23/18 Unknown Rx ED Physical Exam - General Limitations: No Limitations General appearance: alert, in no apparent distress, obese (morbidly obese) - ENT ENT exam: Present: mucous membranes moist - Neck Neck exam: Present: normal inspection. Absent: lymphadenopathy - Respiratory Respiratory exam: Present: normal lung sounds bilaterally. Absent: respiratory distress - Cardiovascular Cardiovascular Exam: Present: regular rate, normal rhythm. Absent: systolic murmur, diastolic murmur, rubs, gallop - GI/Abdominal GI/Abdominal exam: Present: soft, normal bowel sounds - Neurological Exam Neurological exam: Present: alert, oriented X3 - Psychiatric Psychiatric exam: Present: normal affect, normal mood - Skin Skin exam: Present: warm, dry, intact, normal color. Absent: rash ED Course Vital Signs 06/23/18 06/23/18 06/23/18 00:53 00:55 04:52 Temperature 98.6 F 98 F Pulse Rate 96 H 89 Respiratory 18 18 18 Rate Blood Pressure 135/85 135/85 O2 Sat by Pulse 99 99 Oximetry ED Medical Decision Making - Medical Decision Making Patient was examined by me. Vitals are normal and patient is in no acute distress. Normal focal exam. Patient seen in this emergency room 26 with similar complaints. Patient was started on amoxicillin and ibuprofen for otitis media. Patient states she is currently taking medication. Start tramadol for pain. Referral to ENT for follow-up. Plan discussed with patient to discharge home and treat outpatient. She agreed with ER plan. Patient discharged home in stable condition. Follow up with PCP in 2-3 days. Critical care attestation.: If time is entered above; I have spent that time in minutes in the direct care of this critically ill patient, excluding procedure time. ED Disposition Clinical Impression: Otalgia of right ear Headache Qualifiers: Headache type: tension-type Headache chronicity pattern: acute headache Intractability: not intractable Qualified Code(s): G44.209 - Tension-type headache, unspecified, not intractable Disposition: DC-01 TO HOME OR SELFCARE Is pt being admited?: No Does the pt Need Aspirin: No Condition: Stable Instructions: Acute Headache (ED), Earache (ED) Additional Instructions: Follow-up with ear nose and throat physician from the referrals below. Prescriptions: Tramadol HCl [Ultram] 50 mg PO Q6H PRN #10 tablet PRN Reason: Pain , Severe (7-10) Referrals: LILIANA WASHINGTONBELTON MD ANDRES [Primary Care Provider] - 3-5 Days [facility] [Outside] - 3-5 Days [facility] [Provider Group] - 3-5 Days [facility] [Provider Group] - 3-5 Days Time of Disposition: 07:48
== END 2018-06-23 07:56 | disposition home or self-care (01) ==
LOC: ED 00:49
DX: H92.01 Otalgia, right ear (principal); G44.209 Tension-type headache, unspecified, not intractable; F17.200 Nicotine dependence, unspecified, uncomplicated; Z79.899 Other long term (current) drug therapy
CPT/HCPCS: 99282

== ENCOUNTER 2018-06-25 00:15 | Emergency (ER) | payer OTHER ==
--- NOTE | 2018-06-25 02:57 | Emergency Department Report ---
ED Headache HPI - General Chief Complaint: Neuro Symptoms/Deficit Stated Complaint: NECK/HEAD/EAR/EYE PAIN Time Seen by Provider: 06/25/18 02:52 - History of Present Illness Initial Comments: This is a 28-year-old -[place] female presents to the emergency room for headache, right ear pain, and neck pain for one week. Patient is well-known to this provider. She twice this month prior to this visit for similar symptoms. Patient speaks stomach is no longer a day but she continued to have headache, right ear pain, and neck pain. Patient referred to ear nose and throat and never followed up. Patient states she completed antibiotics prescribed on initial visit doesn't not feel better. Timing/Duration: 1 week Quality: moderate Head Injury Location: temporal Recent Head Trauma: no recent headache/trauma Modifying Factors: improves with: medication Associated Symptoms: denies symptoms. denies: confusion, fatigue, facial pain, fever/chills, flushing, loss of consciousness, nausea/vomiting, nasal congestion, numbness in legs/feet, rash, seizures, sinus infection, stiff neck, vision changes, weakness Allergies/Adverse Reactions: Allergies No Known Allergies Allergy (Verified 06/12/16 11:29) Home Medications: Ambulatory Orders NIFEdipine 10 mg PO TID #90 cap 07/13/16 Nitrofurantoin Macrocrysta(Nf) [Macrodantin CAP] 100 mg PO QDAY #30 capsule 07/29/16 Ferrous Sulfate [Feosol 325 MG tab] 325 mg PO BID #30 tablet 08/18/16 oxyCODONE /ACETAMINOPHEN [Percocet 5/325] 1 tab PO Q6HR PRN #30 tablet 08/18/16 Ibuprofen [Motrin 600 MG tab] 600 mg PO Q8H PRN #15 tablet 08/03/17 Sulfamethoxazole/Trimethoprim [Bactrim DS TAB] 1 each PO BID 7 Days #14 tablet 08/03/17 Acetaminophen/Codeine [Tylenol /Codeine # 3 tab] 1 tab PO Q6H PRN #12 tab 01/13/18 Ibuprofen [Motrin] 600 mg PO Q8H PRN #20 tablet 01/13/18 Sulfamethoxazole/Trimethoprim [Bactrim DS TAB] 1 each PO BID #14 tablet 01/13/18 Amoxicillin [Trimox CAP] 500 mg PO Q8H #20 capsule 06/20/18 Ibuprofen [Motrin 600 MG tab] 600 mg PO Q8H PRN #20 tablet 06/20/18 Ondansetron [Zofran Odt] 4 mg PO Q8HR PRN #15 tab.rapdis 06/20/18 Tramadol HCl [Ultram] 50 mg PO Q6H PRN #10 tablet 06/23/18 ED Review of Systems ROS: Stated complaint: NECK/HEAD/EAR/EYE PAIN Other details as noted in HPI Constitutional: denies: chills, fever ENT: ear pain (right). denies: throat pain Respiratory: denies: cough, shortness of breath, wheezing Cardiovascular: denies: chest pain, palpitations Gastrointestinal: denies: abdominal pain, nausea, diarrhea Skin: denies: rash, lesions Neurological: headache. denies: weakness, paresthesias Psychiatric: denies: anxiety, depression ED Past Medical Hx - Past Medical History Hx Hypertension: (h/o PIH) Hx Congestive Heart Failure: No Hx Diabetes: No Hx Deep Vein Thrombosis: No Hx Renal Disease: No Hx Sickle Cell Disease: No Hx Seizures: No Hx Asthma: No Hx COPD: No Hx HIV: No Additional medical history: Abnormal menses, Left knee pain - Surgical History Past Surgical History?: Yes Additional Surgical History: x4 - Social History Smoking Status: Current Every Day Smoker Substance Use Type: None - Medications Home Medications: Home Medications Medication Instructions Recorded Confirmed Last Taken Type NIFEdipine 10 mg PO TID #90 cap 07/13/16 08/16/16 Unknown Rx Nitrofurantoin Macrocrysta(Nf) 100 mg PO QDAY #30 capsule 07/29/16 08/16/16 Unknown Rx [Macrodantin CAP] Ferrous Sulfate [Feosol 325 MG tab] 325 mg PO BID #30 tablet 08/18/16 Unknown Rx oxyCODONE /ACETAMINOPHEN [Percocet 1 tab PO Q6HR PRN #30 tablet 08/18/16 Unknown Rx 5/325] Ibuprofen [Motrin 600 MG tab] 600 mg PO Q8H PRN #15 tablet 08/03/17 Unknown Rx Sulfamethoxazole/Trimethoprim 1 each PO BID 7 Days #14 tablet 08/03/17 Unknown Rx [Bactrim DS TAB] Acetaminophen/Codeine [Tylenol 1 tab PO Q6H PRN #12 tab 01/13/18 Unknown Rx /Codeine # 3 tab] Ibuprofen [Motrin] 600 mg PO Q8H PRN #20 tablet 01/13/18 Unknown Rx Sulfamethoxazole/Trimethoprim 1 each PO BID #14 tablet 01/13/18 Unknown Rx [Bactrim DS TAB] Amoxicillin [Trimox CAP] 500 mg PO Q8H #20 capsule 06/20/18 Unknown Rx Ibuprofen [Motrin 600 MG tab] 600 mg PO Q8H PRN #20 tablet 06/20/18 Unknown Rx Ondansetron [Zofran Odt] 4 mg PO Q8HR PRN #15 tab.rapdis 06/20/18 Unknown Rx Tramadol HCl [Ultram] 50 mg PO Q6H PRN #10 tablet 06/23/18 Unknown Rx ED Physical Exam - General Limitations: Language Barrier General appearance: alert, in no apparent distress, obese - ENT ENT exam: Present: normal orophraynx, mucous membranes moist, TM's normal bilaterally, normal external ear exam - Neck Neck exam: Present: normal inspection - Respiratory Respiratory exam: Present: normal lung sounds bilaterally. Absent: respiratory distress - Cardiovascular Cardiovascular Exam: Present: regular rate, normal rhythm. Absent: systolic mur mur, diastolic murmur, rubs, gallop - GI/Abdominal GI/Abdominal exam: Present: soft, normal bowel sounds - Neurological Exam Neurological exam: Present: alert, oriented X3 - Psychiatric Psychiatric exam: Present: normal affect, normal mood - Skin Skin exam: Present: warm, dry, intact, normal color. Absent: rash ED Medical Decision Making - Radiology Data Radiology results: report reviewed PROCEDURE: CT HEAD/BRAIN WO CON TECHNIQUE: Computerized tomography of the head was performed without contrast material. CT DOSE LENGTH PRODUCT: 886.1 mGycm HISTORY: headache COMPARISONS: None . FINDINGS: Skull and scalp: Normal . Paranasal sinuses: Normal . Ventricles and subarachnoid spaces: Normal . Cerebrum: No evidence of hemorrhage, acute infarction or mass . Cerebellum and brainstem: No evidence of hemorrhage, acute infarction or mass . Vasculature: Normal . IMPRESSION: Normal Examination . - Medical Decision Making Patient is stable and was examined by me. Patient was known that his provider seen several times in the past few weeks. Patient given ear nose and throat referral and never followed up. CT of head obtained and dictated by radiologist. No acute findings. Follow up with PCP. Patient given prescription for tramadol on last visit. Referral to neurology and ear nose and throat. No further questions noted by the patient. Discharged home in stable condition. Follow up with PCP in 24-72 hours. Critical care attestation.: If time is entered above; I have spent that time in minutes in the direct care of this critically ill patient, excluding procedure time. ED Disposition Clinical Impression: Otalgia of right ear, Musculoskeletal neck pain Migraine Qualifiers: Migraine type: without aura Status migrainosus presence: without status migrainosus Intractability: not intractable Qualified Code(s): G43.009 - Migraine without aura, not intractable, without status migrainosus Disposition: TO HOME OR SELFCARE Is pt being admited?: No Does the pt Need Aspirin: No Condition: Stable Instructions: Migraine Headache (ED), Earache (ED) Additional Instructions: Follow-up with ear nose and throat from referrals below. Follow up with neurology from referrals below. Referrals: ANKIT TAPIA MD [Primary Care Provider] - 3-5 Days [facility] [Provider Group] - 3-5 Days [facility] [Provider Group] - 3-5 Days Time of Disposition: 04:38
--- NOTE | 2018-06-25 03:33 | Cat Scan Report ---
PROCEDURE: CT HEAD/BRAIN WO CON TECHNIQUE: Computerized tomography of the head was performed without contrast material. CT DOSE LENGTH PRODUCT: 886.1 mGycm HISTORY: headache COMPARISONS: None . FINDINGS: Skull and scalp: Normal . Paranasal sinuses: Normal . Ventricles and subarachnoid spaces: Normal . Cerebrum: No evidence of hemorrhage, acute infarction or mass . Cerebellum and brainstem: No evidence of hemorrhage, acute infarction or mass . Vasculature: Normal . IMPRESSION: Normal Examination . This document is electronically signed by Cornell Mims MD., Jun 25 2018 03:32:05 AM ET
== END 2018-06-25 04:45 | disposition home or self-care (01) ==
LOC: ED 00:15
DX: H92.01 Otalgia, right ear (principal); M54.2 Cervicalgia; G43.909 Migraine, unspecified, not intractable, without status migrainosus; F17.200 Nicotine dependence, unspecified, uncomplicated
CPT/HCPCS: 70450; 99283

== ENCOUNTER 2018-06-28 23:06 | Emergency (ER) | payer OTHER ==
[2018-06-28] MEDS ORDERED: TYLENOL PO ONE (23:35)
[2018-06-28] MEDS ORDERED: TYLENOL ONE (23:37)
[2018-06-28 23:55] LABS: Basophils # (Auto) 0.1 K/mm3 (0.0-0.1); Basophils % (Auto) 0.8 % (0.0-1.8); Eosinophils # (Auto) 0.1 K/mm3 (0.0-0.4); Hematocrit 34.9 % (30.3-42.9); Hemoglobin 11.7 gm/dl (10.1-14.3); Lymphocytes # (Auto) 2.6 K/mm3 (1.2-5.4); Lymphocytes % (Auto) 34.9 % (13.4-35.0); Mean Corpuscular HGB Conc 34 % (30-34); Mean Corpuscular Volume 88 fl (79-97); Monocytes # (Auto) 0.5 K/mm3 (0.0-0.8); Monocytes % (Auto) 6.5 % (0.0-7.3); Platelet Count 284 K/mm3 (140-440); Red Blood Count 3.96 M/mm3 (3.65-5.03); Red Cell Distribution Width 14.5 % (13.2-15.2)
[2018-06-29 00:11] LABS: Alanine Aminotransferase 10 units/L (7-56); Albumin 3.3 g/dL (3.9-5); BUN/Creatinine Ratio 11; Blood Urea Nitrogen 10 mg/dL (7-17); Calcium 8.7 mg/dL (8.4-10.2); Hemolysis Index 1
--- NOTE | 2018-06-29 02:35 | Emergency Department Report ---
ED ENT HPI - General Chief complaint: Dental/Oral Stated complaint: ABDOMINAL PAIN & TOOTHACHE Time Seen by Provider: 06/29/18 02:07 Source: patient Mode of arrival: Ambulatory Limitations: No Limitations - History of Present Illness Initial comments: Patient is a 28-year-old female who presents for abdominal pain 1 week patient has a history of infected caries however has not seen dentist requested pain medication and follow-up referral to dentist. There is no fever or chills. No nausea vomiting at this time diarrhea at this time patient is tolerating by mouth intake MD complaint: tooth pain Onset/Timin -: week(s) Location: tooth # (3) Severity: moderate Severity scale (0 -10): 3 Quality: aching Consistency: constant Improves with: none Worsens with: other (hot and cold stimuli ) Context- Dental: history of dental caries Associated Symptoms: gum swelling, toothache. denies: pain with swallowing, rhinorrhea - Related Data Previous Rx's Medication Instructions Recorded Last Taken Type NIFEdipine 10 mg PO TID #90 cap 07/13/16 Unknown Rx Nitrofurantoin Macrocrysta(Nf) 100 mg PO QDAY #30 capsule 07/29/16 Unknown Rx [Macrodantin CAP] Ferrous Sulfate [Feosol 325 MG tab] 325 mg PO BID #30 tablet 08/18/16 Unknown Rx oxyCODONE /ACETAMINOPHEN [Percocet 1 tab PO Q6HR PRN #30 tablet 08/18/16 Unknown Rx 5/325] Ibuprofen [Motrin 600 MG tab] 600 mg PO Q8H PRN #15 tablet 08/03/17 Unknown Rx Sulfamethoxazole/Trimethoprim 1 each PO BID 7 Days #14 tablet 08/03/17 Unknown Rx [Bactrim DS TAB] Acetaminophen/Codeine [Tylenol 1 tab PO Q6H PRN #12 tab 01/13/18 Unknown Rx /Codeine # 3 tab] Ibuprofen [Motrin] 600 mg PO Q8H PRN #20 tablet 01/13/18 Unknown Rx Sulfamethoxazole/Trimethoprim 1 each PO BID #14 tablet 01/13/18 Unknown Rx [Bactrim DS TAB] Amoxicillin [Trimox CAP] 500 mg PO Q8H #20 capsule 06/20/18 Unknown Rx Ibuprofen [Motrin 600 MG tab] 600 mg PO Q8H PRN #20 tablet 06/20/18 Unknown Rx Ondansetron [Zofran Odt] 4 mg PO Q8HR PRN #15 tab.rapdis 06/20/18 Unknown Rx Tramadol HCl [Ultram] 50 mg PO Q6H PRN #10 tablet 06/23/18 Unknown Rx Amoxicillin [Trimox CAP] 500 mg PO Q8H 10 Days #30 capsule 06/29/18 Unknown Rx Chlorhexidine Mouthwash [Peridex] 15 ml MM BID #1 bottle 06/29/18 Unknown Rx Ibuprofen 800 mg PO TID PRN #30 tablet 06/29/18 Unknown Rx Allergies Allergy/AdvReac Type Severity Reaction Status Date / Time No Known Allergies Allergy Verified 06/12/16 11:29 ED Dental HPI - General Chief complaint: Dental/Oral Stated complaint: ABDOMINAL PAIN & TOOTHACHE Time Seen by Provider: 06/29/18 02:07 Source: patient Mode of arrival: Ambulatory Limitations: No Limitations - Related Data Previous Rx's Medication Instructions Recorded Last Taken Type NIFEdipine 10 mg PO TID #90 cap 07/13/16 Unknown Rx Nitrofurantoin Macrocrysta(Nf) 100 mg PO QDAY #30 capsule 07/29/16 Unknown Rx [Macrodantin CAP] Ferrous Sulfate [Feosol 325 MG tab] 325 mg PO BID #30 tablet 08/18/16 Unknown Rx oxyCODONE /ACETAMINOPHEN [Percocet 1 tab PO Q6HR PRN #30 tablet 08/18/16 Unknown Rx 5/325] Ibuprofen [Motrin 600 MG tab] 600 mg PO Q8H PRN #15 tablet 08/03/17 Unknown Rx Sulfamethoxazole/Trimethoprim 1 each PO BID 7 Days #14 tablet 08/03/17 Unknown Rx [Bactrim DS TAB] Acetaminophen/Codeine [Tylenol 1 tab PO Q6H PRN #12 tab 01/13/18 Unknown Rx /Codeine # 3 tab] Ibuprofen [Motrin] 600 mg PO Q8H PRN #20 tablet 01/13/18 Unknown Rx Sulfamethoxazole/Trimethoprim 1 each PO BID #14 tablet 01/13/18 Unknown Rx [Bactrim DS TAB] Amoxicillin [Trimox CAP] 500 mg PO Q8H #20 capsule 06/20/18 Unknown Rx Ibuprofen [Motrin 600 MG tab] 600 mg PO Q8H PRN #20 tablet 06/20/18 Unknown Rx Ondansetron [Zofran Odt] 4 mg PO Q8HR PRN #15 tab.rapdis 06/20/18 Unknown Rx Tramadol HCl [Ultram] 50 mg PO Q6H PRN #10 tablet 06/23/18 Unknown Rx Amoxicillin [Trimox CAP] 500 mg PO Q8H 10 Days #30 capsule 06/29/18 Unknown Rx Chlorhexidine Mouthwash [Peridex] 15 ml MM BID #1 bottle 06/29/18 Unknown Rx Ibuprofen 800 mg PO TID PRN #30 tablet 06/29/18 Unknown Rx Allergies Allergy/AdvReac Type Severity Reaction Status Date / Time No Known Allergies Allergy Verified 06/12/16 11:29 ED Review of Systems ROS: Stated complaint: ABDOMINAL PAIN & TOOTHACHE Other details as noted in HPI Constitutional: denies: chills, fever Eyes: denies: eye pain, eye discharge, vision change ENT: dental pain. denies: ear pain, throat pain Respiratory: denies: cough, shortness of breath, wheezing Cardiovascular: denies: chest pain, palpitations Endocrine: no symptoms reported Gastrointestinal: denies: abdominal pain, nausea, diarrhea Genitourinary: denies: urgency, dysuria, discharge Musculoskeletal: denies: back pain, joint swelling, arthralgia Skin: denies: rash, lesions Neurological: denies: headache, weakness, paresthesias Psychiatric: denies: anxiety, depression Hematological/Lymphatic: denies: easy bleeding, easy bruising ED Past Medical Hx - Past Medical History Previous Medical History?: No Hx Hypertension: (h/o PIH) Hx Congestive Heart Failure: No Hx Diabetes: No Hx Deep Vein Thrombosis: No Hx Renal Disease: No Hx Sickle Cell Disease: No Hx Seizures: No Hx Asthma: No Hx COPD: No Hx HIV: No Additional medical history: Abnormal menses, Left knee pain-torn meniscus and ACL-"haven't done surgery" - Surgical History Past Surgical History?: Yes Additional Surgical History: x4 - Social History Smoking Status: Current Every Day Smoker Substance Use Type: None - Medications Home Medications: Home Medications Medication Instructions Recorded Confirmed Last Taken Type NIFEdipine 10 mg PO TID #90 cap 07/13/16 08/16/16 Unknown Rx Nitrofurantoin Macrocrysta(Nf) 100 mg PO QDAY #30 capsule 06/04/17 06/22/17 Unknown Rx [Macrodantin CAP] Ferrous Sulfate [Feosol 325 MG tab] 325 mg PO BID #30 tablet 08/18/16 Unknown Rx oxyCODONE /ACETAMINOPHEN [Percocet 1 tab PO Q6HR PRN #30 tablet 08/18/16 Unknown Rx 5/325] Ibuprofen [Motrin 600 MG tab] 600 mg PO Q8H PRN #15 tablet 08/03/17 Unknown Rx Sulfamethoxazole/Trimethoprim 1 each PO BID 7 Days #14 tablet 08/03/17 Unknown Rx [Bactrim DS TAB] Acetaminophen/Codeine [Tylenol 1 tab PO Q6H PRN #12 tab 01/13/18 Unknown Rx /Codeine # 3 tab] Ibuprofen [Motrin] 600 mg PO Q8H PRN #20 tablet 01/13/18 Unknown Rx Sulfamethoxazole/Trimethoprim 1 each PO BID #14 tablet 01/13/18 Unknown Rx [Bactrim DS TAB] Amoxicillin [Trimox CAP] 500 mg PO Q8H #20 capsule 06/20/18 Unknown Rx Ibuprofen [Motrin 600 MG tab] 600 mg PO Q8H PRN #20 tablet 06/20/18 Unknown Rx Ondansetron [Zofran Odt] 4 mg PO Q8HR PRN #15 tab.rapdis 06/20/18 Unknown Rx Tramadol HCl [Ultram] 50 mg PO Q6H PRN #10 tablet 06/23/18 Unknown Rx Amoxicillin [Trimox CAP] 500 mg PO Q8H 10 Days #30 capsule 06/29/18 Unknown Rx Chlorhexidine Mouthwash [Peridex] 15 ml MM BID #1 bottle 06/29/18 Unknown Rx Ibuprofen 800 mg PO TID PRN #30 tablet 06/29/18 Unknown Rx ED Physical Exam - General Limitations: No Limitations General appearance: alert, in no apparent distress - Head Head exam: Present: atraumatic, normocephalic - Eye Eye exam: Present: normal appearance, PERRL, EOMI Pupils: Present: normal accommodation - ENT ENT exam: Present: normal orophraynx, mucous membranes moist, TM's normal bila terally, normal external ear exam - Expanded ENT Exam Expanded Ear exam: Present: normal external inspection Mouth exam: Present: normal external inspection. Absent: trismus Teeth exam: Present: dental caries, dental tenderness # (3) Throat exam: Positive: other (uvula midline no stridor no lesions no exudate). Negative: tonsillar erythema, tonsillomegaly, tonsillar exudate, R peritonsillar mass, L peritonsillar mass - Neck Neck exam: Present: normal inspection, full ROM. Absent: tenderness, meningismus, lymphadenopathy, thyromegaly - Respiratory Respiratory exam: Present: normal lung sounds bilaterally. Absent: respiratory distress, wheezes, stridor, chest wall tenderness - Cardiovascular Cardiovascular Exam: Present: regular rate, normal rhythm, normal heart sounds. Absent: systolic murmur, diastolic murmur, rubs, gallop - GI/Abdominal GI/Abdominal exam: Present: soft, normal bowel sounds. Absent: tenderness, guarding, rebound, rigid, bruit, hernia - Rectal Rectal exam: Present: deferred - Extremities Exam Extremities exam: Present: normal inspection, full ROM, normal capillary refill. Absent: tenderness - Back Exam Back exam: Present: normal inspection, full ROM. Absent: tenderness, muscle spasm, rash noted - Neurological Exam Neurological exam: Present: alert, oriented X3, CN II-XII intact, normal gait, reflexes normal. Absent: motor sensory deficit - Psychiatric Psychiatric exam: Present: normal affect, normal mood - Skin Skin exam: Present: warm, dry, intact, normal color. Absent: rash ED Course Vital Signs 06/28/18 06/28/18 23:14 23:16 Temperature 98.4 F 98.4 F Pulse Rate 73 76 Respiratory 18 12 Rate Blood Pressure 137/97 Blood Pressure 137/97 [Right] O2 Sat by Pulse 99 99 Oximetry ED Medical Decision Making - Lab Data Result diagrams: 06/28/18 23:42 06/28/18 23:42 Labs 06/28/18 06/28/18 06/28/18 23:42 23:42 23:42 WBC 7.5 RBC 3.96 Hgb 11.7 Hct 34.9 MCV 88 MCH 30 MCHC 34 RDW 14.5 Plt Count 284 Lymph % (Auto) 34.9 [place] % (Auto) 6.5 Eos % (Auto) 1.0 Baso % (Auto) 0.8 Lymph # 2.6 [place] # 0.5 Eos # 0.1 Baso # 0.1 Seg Neutrophils % 56.8 Seg Neutrophils # 4.3 Sodium 144 Potassium 3.7 Chloride 107.7 H Carbon Dioxide 26 Anion Gap 14 BUN 10 Creatinine 0.9 Estimated GFR > 60 BUN/Creatinine Ratio 11 Glucose 111 H Calcium 8.7 Total Bilirubin < 0.20 AST 12 ALT 10 Alkaline Phosphatase 66 Total Protein 6.2 L Albumin 3.3 L Albumin/Globulin Ratio 1.1 HCG, Qual Negative - Medical Decision Making this case is infected dental carries no dental abscess no facial swelling , plan: amoxicillin , ibuprofen, peridex , follow up with [facility] dentist in 2-3 days pt verbalized agreement and understanding of same, pt dc'd to home in stable condition at this time. Critical care attestation.: If time is entered above; I have spent that time in minutes in the direct care of this critically ill patient, excluding procedure time. ED Disposition Clinical Impression: Infected dental carries Disposition: DC-01 TO HOME OR SELFCARE Is pt being admited?: No Does the pt Need Aspirin: No Condition: Stable Instructions: Dental Caries (ED) Prescriptions: Ibuprofen 800 mg PO TID PRN #30 tablet PRN Reason: pain fever Chlorhexidine Mouthwash [Peridex] 15 ml MM BID #1 bottle Amoxicillin [Trimox CAP] 500 mg PO Q8H 10 Days #30 capsule Referrals: [facility] [Outside] - 3-5 Days Forms: Work/School Release Form(ED) Time of Disposition: 02:54
[2018-06-29] MEDS ORDERED: TRIMOX PO ONE (02:36)
[2018-06-29] MEDS ORDERED: IBUPROFEN PO ONE (02:36)
[2018-06-29 03:04] VITALS: BP 121/85
== END 2018-06-29 04:14 | disposition home or self-care (01) ==
LOC: ED 23:06
DX: K02.9 Dental caries, unspecified (principal); F17.200 Nicotine dependence, unspecified, uncomplicated
CPT/HCPCS: 36415; 80053; 84703; 85025

== ENCOUNTER 2018-07-06 01:09 | Emergency (ER) | payer OTHER ==
[2018-07-06 05:39] VITALS: BP 127/77
[2018-07-06 06:10] LABS: HCG Qualitative,Urine Negative (Negative)
--- NOTE | 2018-07-06 08:27 | Cat Scan Report ---
EXAM: CT LUMBAR SPINE WO CON HISTORY: fall TECHNIQUE: Spiral axial CT images with sagittal and coronal reformatted images are obtained through t he lumbar spine without the administration of intravenous or intrathecal contrast. COMPARISON: None available. FINDINGS: There is no vertebral fracture seen. There is no gross malalignment, spondylolisthesis, retrolisthes is, or spondylolysis seen. No evidence for degenerative disc disease or facet joint degenerative dis ease is seen. There is no gross disc herniation seen. Please note that subtle soft tissue abnormalities can be obsc ured in this radiographic setting. Consider follow-up MRI if clinically warranted. IMPRESSION: 1. No gross vertebral fracture or malalignment seen. 2. No gross disc herniation seen. This document is electronically signed by Bryon Montalvo MD., Jul 06 2018 08:25:48 AM ET
[2018-07-06] MEDS ORDERED: NORCO 5/325 PO ONE (08:43)
--- NOTE | 2018-07-06 08:48 | Emergency Department Report ---
ED Back Pain/Injury HPI - General Chief Complaint: Back Pain/Injury Stated Complaint: FALL/BACK PAIN Time Seen by Provider: 07/06/18 07:53 Source: patient Limitations: No Limitations - History of Present Illness Initial Comments: This is a 28-year-old female nontoxic, well nourished in appearance, no acute signs of distress presents to the ED with c/o of acute lower back pain. Patient stated that last night she had a fall from about 6-7 stairs and landed on her back. Patient denies any neck injuries or head injuries. Patient denies any neck pain or head pain. Denies any other complaints or pain. Patient denies any pain radiation. Denies any bladder or bowel instability. Patient denies any urinary symptoms. Denies any fever, chills, nausea, vomiting, headache, st iff neck, chest pain or shortness of breath. Patient denies any numbness or tingling. Denies any allergies. Denies significant past medical history. MD Complaint: back pain Similar Symptoms Previously: No Radiation: none Severity: mild Severity scale (0 -10): 8 Quality: aching Consistency: intermittent Improves With: immobilization, sitting upright Worsens With: movement, walking Context: fall Associated Symptoms: denies: confusion, weakness, chest pain, numbness, difficulty walking, cough, difficulty urinating, diaphoresis, incontinence, fever/chills, constipation, headaches, abdominal pain, loss of appetite, malaise, nausea/vomiting, rash, seizure, shortness of breath, syncope - Related Data Previous Rx's Medication Instructions Recorded Last Taken Type NIFEdipine 10 mg PO TID #90 cap 07/13/16 Unknown Rx Nitrofurantoin Macrocrysta(Nf) 100 mg PO QDAY #30 capsule 07/29/16 Unknown Rx [Macrodantin CAP] Ferrous Sulfate [Feosol 325 MG tab] 325 mg PO BID #30 tablet 08/18/16 Unknown Rx oxyCODONE /ACETAMINOPHEN [Percocet 1 tab PO Q6HR PRN #30 tablet 08/18/16 Unknown Rx 5/325] Ibuprofen [Motrin 600 MG tab] 600 mg PO Q8H PRN #15 tablet 08/03/17 Unknown Rx Sulfamethoxazole/Trimethoprim 1 each PO BID 7 Days #14 tablet 08/03/17 Unknown Rx [Bactrim DS TAB] Acetaminophen/Codeine [Tylenol 1 tab PO Q6H PRN #12 tab 01/13/18 Unknown Rx /Codeine # 3 tab] Ibuprofen [Motrin] 600 mg PO Q8H PRN #20 tablet 01/13/18 Unknown Rx Sulfamethoxazole/Trimethoprim 1 each PO BID #14 tablet 01/13/18 Unknown Rx [Bactrim DS TAB] Amoxicillin [Trimox CAP] 500 mg PO Q8H #20 capsule 06/20/18 Unknown Rx Ibuprofen [Motrin 600 MG tab] 600 mg PO Q8H PRN #20 tablet 06/20/18 Unknown Rx Ondansetron [Zofran Odt] 4 mg PO Q8HR PRN #15 tab.rapdis 06/20/18 Unknown Rx Tramadol HCl [Ultram] 50 mg PO Q6H PRN #10 tablet 06/23/18 Unknown Rx Amoxicillin [Trimox CAP] 500 mg PO Q8H 10 Days #30 capsule 06/29/18 Unknown Rx Chlorhexidine Mouthwash [Peridex] 15 ml MM BID #1 bottle 06/29/18 Unknown Rx Ibuprofen 800 mg PO TID PRN #30 tablet 06/29/18 Unknown Rx Cyclobenzaprine [Flexeril] 10 mg PO QHS PRN #10 tablet 07/06/18 Unknown Rx Ibuprofen [Motrin] 600 mg PO Q8H PRN #20 tablet 07/06/18 Unknown Rx Allergies Allergy/AdvReac Type Severity Reaction Status Date / Time No Known Allergies Allergy Verified 06/12/16 11:29 ED Review of Systems ROS: Stated complaint: FALL/BACK PAIN Other details as noted in HPI Constitutional: denies: chills, fever Eyes: denies: eye pain, eye discharge, vision change ENT: denies: ear pain, throat pain Respiratory: denies: cough, shortness of breath, wheezing Cardiovascular: denies: chest pain, palpitations Endocrine: no symptoms reported Gastrointestinal: denies: abdominal pain, nausea, diarrhea Genitourinary: denies: urgency, dysuria, discharge Musculoskeletal: back pain. denies: joint swelling, arthralgia Skin: denies: rash, lesions Neurological: denies: headache, weakness, paresthesias Psychiatric: denies: anxiety, depression Hematological/Lymphatic: denies: easy bleeding, easy bruising ED Past Medical Hx - Past Medical History Previous Medical History?: Yes Hx Hypertension: (h/o PIH) Hx Congestive Heart Failure: No Hx Diabetes: No Hx Deep Vein Thrombosis: No Hx Renal Disease: No Hx Sickle Cell Disease: No Hx Seizures: No Hx Asthma: No Hx COPD: No Hx HIV: No Additional medical history: Abnormal menses, Left knee pain-torn meniscus and ACL-"haven't done surgery" - Surgical History Past Surgical History?: Yes Additional Surgical History: x4 - Social History Smoking Status: Never Smoker Substance Use Type: None - Medications Home Medications: Home Medications Medication Instructions Recorded Confirmed Last Taken Type NIFEdipine 10 mg PO TID #90 cap 07/13/16 08/16/16 Unknown Rx Nitrofurantoin Macrocrysta(Nf) 100 mg PO QDAY #30 capsule 07/29/16 08/16/16 Unknown Rx [Macrodantin CAP] Ferrous Sulfate [Feosol 325 MG tab] 325 mg PO BID #30 tablet 08/18/16 Unknown Rx oxyCODONE /ACETAMINOPHEN [Percocet 1 tab PO Q6HR PRN #30 tablet 08/18/16 Unknown Rx 5/325] Ibuprofen [Motrin 600 MG tab] 600 mg PO Q8H PRN #15 tablet 08/03/17 Unknown Rx Sulfamethoxazole/Trimethoprim 1 each PO BID 7 Days #14 tablet 08/03/17 Unknown Rx [Bactrim DS TAB] Acetaminophen/Codeine [Tylenol 1 tab PO Q6H PRN #12 tab 01/13/18 Unknown Rx /Codeine # 3 tab] Ibuprofen [Motrin] 600 mg PO Q8H PRN #20 tablet 01/13/18 Unknown Rx Sulfamethoxazole/Trimethoprim 1 each PO BID #14 tablet 01/13/18 Unknown Rx [Bactrim DS TAB] Amoxicillin [Trimox CAP] 500 mg PO Q8H #20 capsule 06/20/18 Unknown Rx Ibuprofen [Motrin 600 MG tab] 600 mg PO Q8H PRN #20 tablet 06/20/18 Unknown Rx Ondansetron [Zofran Odt] 4 mg PO Q8HR PRN #15 tab.rapdis 06/20/18 Unknown Rx Tramadol HCl [Ultram] 50 mg PO Q6H PRN #10 tablet 06/23/18 Unknown Rx Amoxicillin [Trimox CAP] 500 mg PO Q8H 10 Days #30 capsule 06/29/18 Unknown Rx Chlorhexidine Mouthwash [Peridex] 15 ml MM BID #1 bottle 06/29/18 Unknown Rx Ibuprofen 800 mg PO TID PRN #30 tablet 06/29/18 Unknown Rx Cyclobenzaprine [Flexeril] 10 mg PO QHS PRN #10 tablet 07/06/18 Unknown Rx Ibuprofen [Motrin] 600 mg PO Q8H PRN #20 tablet 07/06/18 Unknown Rx ED Physical Exam - General Limitations: No Limitations General appearance: alert, in no apparent distress - Head Head exam: Present: atraumatic, normocephalic - Eye Eye exam: Present: normal appearance - Neck Neck exam: Present: normal inspection, full ROM. Absent: tenderness, meningismus, lymphadenopathy - Respiratory Respiratory exam: Present: normal lung sounds bilaterally. Absent: respiratory distress, wheezes, rales, rhonchi, stridor, chest wall tenderness, accessory muscle use, decreased breath sounds, prolonged expiratory - Cardiovascular Cardiovascular Exam: Present: regular rate, normal rhythm, normal heart sounds. Absent: bradycardia, tachycardia, irregular rhythm, systolic murmur, diastolic murmur, rubs, gallop - GI/Abdominal GI/Abdominal exam: Present: soft, normal bowel sounds. Absent: distended, tenderness, guarding, rebound, rigid, diminished bowel sounds - Extremities Exam Extremities exam: Present: normal inspection, full ROM, normal capillary refill. Absent: tenderness - Back Exam Back exam: Present: normal inspection, full ROM, paraspinal tenderness (lumbar paraspinal). Absent: tenderness, CVA tenderness (R), CVA tenderness (L), muscle spasm, vertebral tenderness, rash noted - Expanded Back Exam Expanded Back exam: Absent: saddle anesthesia Back exam: Negative Straight Leg Raising: Right, Left - Neurological Exam Neurological exam: Present: alert, oriented X3, normal gait - Psychiatric Psychiatric exam: Present: normal affect, normal mood - Skin Skin exam: Present: warm, dry, intact, normal color. Absent: rash ED Course Vital Signs 07/06/18 07/06/18 01:13 05:38 Temperature 98.7 F 98.2 F Pulse Rate 70 59 L Respiratory 18 18 Rate Blood Pressure 150/83 127/77 O2 Sat by Pulse 98 100 Oximetry - Reevaluation(s) Reevaluation #1: 07/06/18 08:48 Patient is speaking in full sentences with no signs of distress noted. ED Medical Decision Making - Medical Decision Making This is a 28-year-old female that presents with low back strain. Patient is stable was examined by me. There is no spinal tenderness. There is no cauda equina syndrome during examination. No bladder or bowel instability. Patient received [place] in the ED which she stated that her symptoms has resolved and subsided. Patient's family member is present as stated will take the patient home after discharged to possible drowsiness of [place] as she was instructed not to operate any machinery. CT scan of cervical spine unremarkable and dictated by radiologist. Patient is notified of the CT results with no questions noted by the patient. Patient is discharged with muscle relaxant and Motrin. Patient was instructed not to operate any machinery while taking muscle relaxant as they cause her drowsiness. Patient was referred to Follow-up with a primary care doctor in 3-5 days or if symptoms worsen and continue return to emergency room as soon as possible. At time of discharge, the patient does not seem toxic or ill in appearance. No acute signs of distress noted. Patient agrees to discharge treatment plan of care. No further questions noted by the patient. This chart is dictated with using [employer] Critical care attestation.: If time is entered above; I have spent that time in minutes in the direct care of this critically ill patient, excluding procedure time. ED Disposition Clinical Impression: Low back strain Qualifiers: Encounter type: initial encounter Qualified Code(s): S39.012A - Strain of muscle, fascia and tendon of lower back, initial encounter Fall Qualifiers: Encounter type: initial encounter Qualified Code(s): W19.XXXA - Unspecified fall, initial encounter Disposition: DC- TO HOME OR SELFCARE Is pt being admited?: No Does the pt Need Aspirin: No Condition: Stable Instructions: Low Back Strain (ED), Fall Prevention (ED), Cyclobenzaprine (By mouth) Additional Instructions: Follow-up with your primary care doctor in 3-5 days or if symptoms worsen such as bladder or bowel stability, chest pain, short of breath, numbness or tingling sensation in extremities, headache, dizziness, visual changes, nausea vomiting, or abdominal pain, return back to emergency room as was possible. Take ibuprofen and Flexeril as prescribed. Do not operate heavy machinery while taking Flexeril due to sedation Prescriptions: Cyclobenzaprine [Flexeril] 10 mg PO QHS PRN #10 tablet PRN Reason: Muscle Spasm Ibuprofen [Motrin] 600 mg PO Q8H PRN #20 tablet PRN Reason: Pain [facility] [Primary Care Provider[facility] - 3-5 Days PRIMARY CAREMD [Referring] - 3-5 Days CJ REAGAN MD [Staff Physician] - 3-5 Days [facility] [Outside] - 3-5 Days [facility] [Outside] - 3-5 Days Forms: Work/School Release Form(ED)
== END 2018-07-06 09:01 | disposition home or self-care (01) ==
LOC: ED 01:09
DX: S39.012A Strain of muscle, fascia and tendon of lower back, initial encounter (principal); W19.XXXA Unspecified fall, initial encounter; Y93.89 Activity, other specified; Y92.89 Other specified places as the place of occurrence of the external cause; Y99.8 Other external cause status
CPT/HCPCS: 72131; 81025

== ENCOUNTER 2018-07-24 02:58 | Emergency (ER) | payer OTHER ==
[2018-07-24 07:45] LABS: Alanine Aminotransferase 9 units/L (7-56); Albumin 3.3 g/dL (3.9-5); BUN/Creatinine Ratio 14; Blood Urea Nitrogen 10 mg/dL (7-17); Calcium 8.6 mg/dL (8.4-10.2); Hemolysis Index 8
[2018-07-24 08:01] LABS: Basophils % (Auto) 0.2 % (0.0-1.8); Eosinophils # (Auto) 0.1 K/mm3 (0.0-0.4); Hemoglobin 10.9 gm/dl (10.1-14.3); Lymphocytes # (Auto) 2.2 K/mm3 (1.2-5.4); Mean Corpuscular HGB Conc 35 % (30-34); Mean Corpuscular Volume 87 fl (79-97); Monocytes # (Auto) 0.4 K/mm3 (0.0-0.8); Monocytes % (Auto) 5.3 % (0.0-7.3); Platelet Count 254 K/mm3 (140-440); Red Blood Count 3.55 M/mm3 (3.65-5.03); Red Cell Distribution Width 14.4 % (13.2-15.2)
--- NOTE | 2018-07-24 08:26 | Emergency Department Report ---
HPI - General Chief Complaint: Wound/Laceration Time Seen by Provider: 07/24/18 07:12 - HPI HPI: Patient comes to the ER last night with complaints of her 2017 incision leaking. She has no fever. She is ambulatory. Vital signs are stable. Nontoxic on assessment. ED Past Medical Hx - Past Medical History Previous Medical History?: Yes Hx Hypertension: (h/o PIH) Hx Congestive Heart Failure: No Hx Diabetes: No Hx Deep Vein Thrombosis: No Hx Renal Disease: No Hx Sickle Cell Disease: No Hx Seizures: No Hx Asthma: No Hx COPD: No Hx HIV: No Additional medical history: Abnormal menses, Left knee pain-torn meniscus and ACL-"haven't done surgery" - Surgical History Past Surgical History?: Yes Additional Surgical History: x4 - Social History Smoking Status: Never Smoker Substance Use Type: None - Medications Home Medications: Home Medications Medication Instructions Recorded Confirmed Last Taken Type NIFEdipine 10 mg PO TID #90 cap 07/13/16 08/16/16 Unknown Rx Nitrofurantoin Macrocrysta(Nf) 100 mg PO QDAY #30 capsule 07/29/16 08/16/16 Unknown Rx [Macrodantin CAP] Ferrous Sulfate [Feosol 325 MG tab] 325 mg PO BID #30 tablet 08/18/16 Unknown Rx oxyCODONE /ACETAMINOPHEN [Percocet 1 tab PO Q6HR PRN #30 tablet 08/18/16 Unknown Rx 5/325] Ibuprofen [Motrin 600 MG tab] 600 mg PO Q8H PRN #15 tablet 08/03/17 Unknown Rx Sulfamethoxazole/Trimethoprim 1 each PO BID 7 Days #14 tablet 08/03/17 Unknown Rx [Bactrim DS TAB] Acetaminophen/Codeine [Tylenol 1 tab PO Q6H PRN #12 tab 01/13/18 Unknown Rx /Codeine # 3 tab] Ibuprofen [Motrin] 600 mg PO Q8H PRN #20 tablet 01/13/18 Unknown Rx Sulfamethoxazole/Trimethoprim 1 each PO BID #14 tablet 01/13/18 Unknown Rx [Bactrim DS TAB] Amoxicillin [Trimox CAP] 500 mg PO Q8H #20 capsule 06/20/18 Unknown Rx Ibuprofen [Motrin 600 MG tab] 600 mg PO Q8H PRN #20 tablet 06/20/18 Unknown Rx Ondansetron [Zofran Odt] 4 mg PO Q8HR PRN #15 tab.rapdis 06/20/18 Unknown Rx Tramadol HCl [Ultram] 50 mg PO Q6H PRN #10 tablet 06/23/18 Unknown Rx Amoxicillin [Trimox CAP] 500 mg PO Q8H 10 Days #30 capsule 06/29/18 Unknown Rx Chlorhexidine Mouthwash [Peridex] 15 ml MM BID #1 bottle 06/29/18 Unknown Rx Ibuprofen [Ibuprofen 800] 800 mg PO TID PRN #30 tablet 06/29/18 Unknown Rx Cyclobenzaprine [Flexeril] 10 mg PO QHS PRN #10 tablet 07/06/18 Unknown Rx Ibuprofen [Motrin] 600 mg PO Q8H PRN #20 tablet 07/06/18 Unknown Rx ED Review of Systems ROS: Stated complaint: C SEC SCAR PAIN DISCHARGE Other details as noted in HPI Comment: All other systems reviewed and negative Physical Exam - Physical Exam General: - Head Head exam: Present: atraumatic, normocephalic - Eye Eye exam: Present: normal appearance, EOMI. Absent: nystagmus - ENT ENT exam: Present: normal exam, normal orophraynx, mucous membranes moist, normal external ear exam, no lymphadenopathy - Neck Neck exam: Present: normal inspection, full ROM. Absent: tenderness, meningismus - Respiratory Respiratory exam: Present: normal lung sounds bilaterally. Absent: respiratory distress, wheezes, rales, rhonchi, stridor, chest wall tenderness, accessory muscle use, decreased breath sounds, prolonged expiratory - Cardiovascular Cardiovascular Exam: Present: regular rate, normal rhythm, normal heart sounds. Absent: bradycardia, tachycardia, irregular rhythm, systolic murmur, diastolic murmur, rubs, gallop, JVD, edema - GI/Abdominal GI/Abdominal exam: Present: soft, non tender on light and deep palpation. Old csec incision noted without drainage. The incision is well healed. Absent: distended, tenderness, guarding, rebound, rigid, pulsatile mass - Rectal Rectal exam: Present: deferred - Extremities Exam Extremities exam: Present: normal inspection, full ROM, other (2+ pulses noted in the bilateral upper extremities. Bilateral lower extremities with 2+ DP bilateral. Full ROM. Absent: calf tenderness - Back Exam Back exam: Present: normal inspection, full ROM. Absent: tenderness, CVA tenderness (R), CVA tenderness (L), paraspinal tenderness, vertebral tenderness - Neurological Exam Neurological exam: Present: alert, oriented X3, normal gait, other (Extraocular movements intact. Tongue midline. No facial droop. Facial sensation intact to light touch in the V1, V2, V3 distribution bilaterally. 5 and 5 strength in 4 extremities.. Sensation is intact to light touch in 4 extremities.). Absent: motor sensory deficit - Psychiatric Psychiatric exam: normal affect and mood - Skin Skin exam: Present: warm, dry, intact, normal color. Absent: rash ED Medical Decision Making - Lab Data Result diagrams: 07/24/18 07:12 07/24/18 07:12 - Medical Decision Making RN asked to record VS from paper chart They are normal. 0900 Pt no longer in room. Staff attempting to locate her Lab Results 07/24/18 07/24/18 Range/Units 07:12 07:12 WBC 6.7 (4.5-11.0) K/mm3 RBC 3.55 L (3.65-5.03) M/mm3 Hgb 10.9 (10.1-14.3) gm/dl Hct 31.0 (30.3-42.9) % MCV 87 (79-97) fl MCH 31 (28-32) pg MCHC 35 H (30-34) % RDW 14.4 (13.2-15.2) % Plt Count 254 (140-440) K/mm3 Lymph % (Auto) 33.0 (13.4-35.0) % Bryan % (Auto) 5.3 (0.0-7.3) % Eos % (Auto) 1.0 (0.0-4.3) % Baso % (Auto) 0.2 (0.0-1.8) % Lymph # 2.2 (1.2-5.4) K/mm3 Bryan # 0.4 (0.0-0.8) K/mm3 Eos # 0.1 (0.0-0.4) K/mm3 Baso # 0.0 (0.0-0.1) K/mm3 Seg Neutrophils % 60.5 (40.0-70.0) % Seg Neutrophils # 4.0 (1.8-7.7) K/mm3 Sodium 143 (137-145) mmol/L Potassium 3.7 (3.6-5.0) mmol/L Chloride 106.7 (98-107) mmol/L Carbon Dioxide 26 (22-30) mmol/L Anion Gap 14 mmol/L BUN 10 (7-17) mg/dL Creatinine 0.7 (0.7-1.2) mg/dL Estimated GFR > 60 ml/min BUN/Creatinine Ratio 14 % Glucose 119 H (65-100) mg/dL Calcium 8.6 (8.4-10.2) mg/dL Total Bilirubin < 0.20 (0.1-1.2) mg/dL AST 10 (5-40) units/L ALT 9 (7-56) units/L Alkaline Phosphatase 65 (35-129) units/L Total Protein 5.7 L (6.3-8.2) g/dL Albumin 3.3 L (3.9-5) g/dL Albumin/Globulin Ratio 1.4 % Critical care attestation.: If time is entered above; I have spent that time in minutes in the direct care of this critically ill patient, excluding procedure time. ED Disposition Clinical Impression: Previous section Disposition: ELOPED Is pt being admited?: No Does the pt Need Aspirin: No Condition: Stable Referrals: ANKIT TAPIA MD [Primary Care Provider] - 3-5 Days Time of Disposition: 09:00
== END 2018-07-24 07:15 | disposition left against medical advice (07) ==
LOC: ED 02:58
DX: T81.89XA Other complications of procedures, not elsewhere classified, initial encounter (principal); Z79.899 Other long term (current) drug therapy
CPT/HCPCS: 36415; 80053; 85025; 99283